=== PATIENT | female | born 1995 | race Caucasian/White ===

== ENCOUNTER 2017-06-17 16:43 | Outpatient (CLI) | payer BC, MEDICAID, SELFPAY ==
[2017-06-17] MEDS: Dextrose 5%-Lactated Ringers 1,000 ML 1000 ML IV (17:39)
[2017-06-17] MEDS: Metoclopramide 10 MG/2 ML Vial IV (18:18)
[2017-06-17 18:23] LABS: Absolute Lymphocyte Count 1.43 X10^3/ul (0.83-4.51); Absolute Neutrophil Count 4.9 X10^3/uL (2.0-7.7); Basophil# 0.02 X10^3/uL; Basophil% 0.3 % (0-1); Eosinophil# 0.03 X10^3/uL; Eosinophils% 0.4 % (0-5); Hematocrit 34.8 % (37-47); Hemoglobin 11.9 g/dl (12.0-15.0); Lymphocyte # 1.43 X10^3/ul (4.0); Lymphocyte % 21.4 % (19-41); Mean Corp Hgb Conc 34.2 g/gl (32-36); Mean Corpuscular Hgb 30.8 pg (27.0-32.0); Mean Corpuscular Volume 90.2 fL (81-99); Mean Platelet Vol. 9.1 fl (6.2-12.0); Monocyte# 0.34 X10^3/uL; Monocyte% 5.1 % (0-10); Neutrophil # 4.85 X10^3/uL (2.7-7.7); Neutrophil % 72.7 % (47-70); Platelet Count 190 K/mm3 (150-450); RBC Distribution Width SD 39.3 fl (35.1-43.9); Red Blood Count 3.86 M/mm3 (4.2-5.4); White Blood Count 6.7 K/mm3 (4.4-11.0)
[2017-06-17 18:25] LABS: POSITIVE COUNT NO; POSITIVE DIFFERENTIAL NO; POSITIVE MORPHOLOGY NO
[2017-06-17 18:40] VITALS: BP 102/60; PULSE 84; RESP 16; TEMP 35.9; O2SAT 99
[2017-06-17 18:54] LABS: ALB/GLOB Ratio 1.2 RATIO (0.9-2.4); AST(SGOT) 13 U/L (15-37); Alanine Aminotransfer ALT/SGPT 20 U/L (13-56); Albumin, Serum 3.3 g/dL (3.2-5.0); Alkaline Phosphatase 40 U/L (45-117); Anion Gap 7 (5-15); BUN 7 mg/dL (7-18); BUN/Creat Ratio 13.6 RATIO (10-20); Calcium,Total 7.9 mg/dL (8.5-10.1); Chloride 104 mmol/L (98-107); Creatinine, Serum 0.52 mg/dL (0.55-1.02); EST Glomerular Filtration Rate 155 mL/min (>60); Est Glom Filt Rate - Afr Amer 188 mL/min (>60); Globulin 2.7 g/dL (2.2-4.2); Glucose 168 mg/dL (74-106); Potassium 3.5 mmol/L (3.5-5.1); Sodium Level 136 mmol/L (136-145); T4 Free Direct 0.88 ng/dL (0.76-1.46); Thyroid Stim Hormone (TSH) 0.48 uIU/mL (0.358-3.74)
[2017-06-17 19:13] LABS: Pregnancy, Serum, hCG Quali. POSITIVE Negative (0-9 Nonpreg)
== END 2017-06-17 18:45 | disposition home or self-care (01) ==
LOC: MEDOUTP 17:08 → MS2 17:09
PROVIDERS: Visit Provider Obstetrics & Gynecology
DX: O21.1 Hyperemesis gravidarum with metabolic disturbance (principal); Z3A.00 Weeks of gestation of pregnancy not specified
CPT/HCPCS: 96361; 96374; 80053; 84439; 84443; 84703; 85025

== ENCOUNTER 2017-07-03 16:19 | Emergency (ER) | payer BC, MEDICAID, SELFPAY ==
[2017-07-03 16:21] VITALS: BP 109/85; PULSE 93; RESP 16; TEMP 36.9; O2SAT 97; BMI 23.6
--- NOTE | 2017-07-03 17:57 | EKG12_ITS ---
Test Reason : CP Blood Pressure : / mmHG Vent. Rate : 082 BPM Atrial Rate : 082 BPM P-R Int : 128 ms QRS Dur : 090 ms QT Int : 380 ms P-R-T Axes : 022 058 033 degrees QTc Int : 443 ms Normal sinus rhythm Normal ECG Confirmed by GUILLERMO GONCALVES, LESIA ([id number]), copy editor MATT JOHN ([id number]) on 07/08/2017 2:17:51 PM Referred By: ED Confirmed By:LESIA LI MD
--- NOTE | 2017-07-03 17:58 | CT_ITS ---
STUDY: CTA CHEST REASON FOR EXAM: Female, 22 years old. Chest pain. RADIATION DOSAGE (If Supplied By Facility): CTDIvol = ( 8.91 ) mGy, DLP = ( 365.35 ) mGycm TECHNIQUE: The examination was performed with the intravenous administration of 75ML ml of Isovue 370 contrast material. Post-processing of the angiographic images was performed, with multiplanar reformation and 3D reconstruction. Individualized dose optimization techniques were used for this CT. COMPARISON: None. FINDINGS: There is no pneumothorax. There are no pulmonary infiltrates or pleural effusions. There is a calcified granuloma in the right lower lobe. There are no filling defects within the pulmonary arteries to suggest pulmonary embolus. The pulmonary arteries are normal in caliber. There is no evidence of thoracic aortic aneurysm or dissection. The heart and pericardium are within normal limits. There is no thoracic lymphadenopathy. Images through the upper abdomen demonstrate no significant abnormality. There are no destructive osseous lesions. CT/CTA Chest W/WO Contrast IMPRESSION: No evidence of pulmonary embolus or other acute thoracic disease. Electronically Signed: Kahlil Mendez, at 20:04 EST Tel , Service support ,
[2017-07-03 18:00] LABS: Mucous, Urine 0 SEEN /hpf (<or=2+); Red Blood Cells-Urine 0 SEEN /hpf (0-5)
[2017-07-03] MEDS: 0.9% Normal Saline 1,000 ML 1000 ML IV (18:16)
[2017-07-03 18:26] LABS: Color, Urine Yellow (Yellow); Glucose, Dipstick Normal (Normal); Ketone-Dipstick Negative (Negative); Leukocyte Esterase-Dipstick 100 /ul (Negative); Nitrite-Dipstick Negative (Negative); Occult Blood-Urine Negative /ul (Negative); Protein-Dipstick 15 mg/dl (Negative); Urine Bilirubin Dipstick Negative (Negative); Urine Clarity Cloudy (Clear); Urine Urobilinogen Normal (Normal)
[2017-07-03 18:26] LABS: Absolute Lymphocyte Count 0.84 X10^3/ul (0.83-4.51); Absolute Neutrophil Count 8.4 X10^3/uL (2.0-7.7); Basophil# 0.01 X10^3/uL; Basophil% 0.1 % (0-1); Eosinophil# 0.03 X10^3/uL; Eosinophils% 0.3 % (0-5); Hemoglobin 14.7 g/dl (12.0-15.0); Lymphocyte # 0.84 X10^3/ul (4.0); Lymphocyte % 8.5 % (19-41); Mean Corpuscular Hgb 31.1 pg (27.0-32.0); Mean Platelet Vol. 9.3 fl (6.2-12.0); Monocyte# 0.54 X10^3/uL; Monocyte% 5.5 % (0-10); Neutrophil # 8.41 X10^3/uL (2.7-7.7); Neutrophil % 85.5 % (47-70); Platelet Count 247 K/mm3 (150-450); RBC Distribution Width CV 12.2 % (11.6-14.6); RBC Distribution Width SD 39.3 fl (35.1-43.9); Red Blood Count 4.72 M/mm3 (4.2-5.4); White Blood Count 9.8 K/mm3 (4.4-11.0)
[2017-07-03 18:27] LABS: POSITIVE COUNT NO; POSITIVE DIFFERENTIAL NO; POSITIVE MORPHOLOGY NO
[2017-07-03] MEDS: MethylPREDNISolone 125 MG/2 ML Vial 60 MG IV (18:30)
[2017-07-03] MEDS: DiphenhydrAMINE 50 MG/ML Syringe 25 MG IV (18:30)
[2017-07-03 18:36] LABS: Anion Gap 9 (5-15); BUN 7 mg/dL (7-18); BUN/Creat Ratio 14.1 RATIO (10-20); Calcium,Total 8.6 mg/dL (8.5-10.1); Chloride 104 mmol/L (98-107); EST Glomerular Filtration Rate 162 mL/min (>60); Est Glom Filt Rate - Afr Amer 196 mL/min (>60); Estimated Creatinine Clearance 149.82 ml/min; Glucose 87 mg/dL (74-106); Potassium 3.4 mmol/L (3.5-5.1); Sodium Level 136 mmol/L (136-145)
[2017-07-03 18:43] LABS: Bacteria 4+ /hpf (None Seen); Squamous Epithelial Cells - UA 5-10 SEEN /hpf (5-10); Transitional Epithelial - Ur 0-5 SEEN /hpf (0-5); White Blood Cells 0-5 SEEN /hpf (0-5)
[2017-07-03 18:44] LABS: Amorphous Sediment 4+; Calcium Oxalate Crystals Ur RARE /hpf (<or=2+)
--- NOTE | 2017-07-03 19:00 | ED.RN ---
DR. ORTIZ AWARE OF LAB CALLING WITH A BETA HCG 52,199
[2017-07-03 19:26] LABS: Prothrombin Time (Protime)PT. 13.3 SECONDS (11.7-14.9)
[2017-07-03 20:15] VITALS: BP 99/74; PULSE 83; RESP 16; O2SAT 97
[2017-07-03 20:21] VITALS: BP 104/77; BP 110/83; BP 115/87; PULSE 109; PULSE 87; PULSE 95
--- NOTE | 2017-07-03 21:04 | ED.DCSUM_ITS ---
- ER Visit Summary Date of Service: 07/03/17 Chief Complaint: Dizziness and lightheadedness History of Present Illness: The patient is a 22 F who presents with dizziness lightheadedness near syncope. This is been present for 3-4 days. It is worse with changes in position. She also complains of sharp stabbing chest pain which radiates through to the back and shortness of breath. She has had about 2 -3 episodes of dry heaving in the past week no actual vomiting. She does report eating less but drinking okay. No diarrhea. She also developed some pelvic and low back cramping earlier today. No vaginal bleeding. She is 9 weeks . She has a history of prior similar chest pain. Physical Examination: Afebrile vitals are normal Moist mucous members Heart regular rate and rhythm Lungs are clear Abdomen soft nontender nondistended Alert Test Results: EKG shows sinus rhythm at a rate of 82. CBC BMP INR unremarkable. Urinalysis is contaminated. This will be sent for urine culture. Troponin negative. Bedside pelvic ultrasound performed by the emergency physician shows a live IUP with heart rate of 188. CTA of the chest shows no acute findings. Orthostatic vital signs negative. Emergency Department Course and Treatment: She was treated with IV fluids. She is resting on reevaluation. Her workup is unremarkable here. 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 She understands to return for new or worsening symptoms. Patient discharged. Treatment Plan: [] Disposition: Discharge Impression: Syncope Pelvic cramping First trimester This note was generated with [employer] dictation software. It may contain incorrect words, spelling, and punctuation that were not noted in review of the chart prior to signing ED Disposition - Plan for ED Patient: Chief Complaint: Dizziness Referrals: Care Physician,No Primary [Primary Care Provider] -
--- NOTE | 2017-07-03 21:04 | ED.DEP ---
ED Disposition - Plan for ED Patient: Chief Complaint: Dizziness Instructions: ED Near Syncope Unkn Referrals: Care Physician,No Primary [Primary Care Provider] - Emily Mike MD [STAFF PHYSICIAN] -
[2017-07-03 21:08] VITALS: BP 104/75; PULSE 84; RESP 16; O2SAT 97
== END 2017-07-03 21:16 | disposition home or self-care (01) ==
PROVIDERS: Emergency Provider Emergency Medicine
DX: O99.89 Other specified diseases and conditions complicating pregnancy, childbirth and the puerperium (principal); R55 Syncope and collapse; O26.891 Other specified pregnancy related conditions, first trimester; R10.2 Pelvic and perineal pain; Z3A.09 9 weeks gestation of pregnancy
CPT/HCPCS: 71275; 80048; 81001; 84484; 84702; 85025; 85610; 93005; 96361; 96374; 96375; 99285; J7030; Q9967; A4216

== ENCOUNTER → 2017-07-19 16:45 | Outpatient (CLI) | payer BC, SELFPAY ==
[2017-07-19 19:05] LABS: Chlamydia Trachomatis by PCR Negative (Negative); Neisserai gonorrhoeae by PCR Negative (Negative); Probe Check PASS; Sample Adequacy Control PASS; Specimen Processing Control PASS
[2017-07-30 14:31] LABS: HPV APTIMA, High Risk Negative (Negative); HPV Reflexed? YES, CHARGE PATIENT
== END ==
PROVIDERS: Visit Provider Obstetrics & Gynecology
DX: Z12.4 Encounter for screening for malignant neoplasm of cervix (principal); O09.91 Supervision of high risk pregnancy, unspecified, first trimester; Z3A.00 Weeks of gestation of pregnancy not specified
CPT/HCPCS: 87086; 87491; 87591; 87624; 88175; G0145

== ENCOUNTER → 2017-08-28 09:29 | Outpatient (CLI) | payer OTHER, MEDICAID, SELFPAY ==
[2017-08-28 09:55] LABS: Absolute Lymphocyte Count 1.49 X10^3/ul (0.83-4.51); Absolute Neutrophil Count 5.1 X10^3/uL (2.0-7.7); Basophil# 0.02 X10^3/uL; Basophil% 0.3 % (0-1); Eosinophil# 0.05 X10^3/uL; Eosinophils% 0.7 % (0-5); Hematocrit 39.1 % (37-47); Hemoglobin 13.7 g/dl (12.0-15.0); Lymphocyte # 1.49 X10^3/ul (4.0); Lymphocyte % 20.8 % (19-41); Mean Corpuscular Hgb 31.6 pg (27.0-32.0); Mean Corpuscular Volume 90.1 fL (81-99); Mean Platelet Vol. 8.9 fl (6.2-12.0); Monocyte# 0.51 X10^3/uL; Monocyte% 7.1 % (0-10); Neutrophil # 5.06 X10^3/uL (2.7-7.7); Neutrophil % 70.8 % (47-70); Platelet Count 273 K/mm3 (150-450); RBC Distribution Width CV 12.3 % (11.6-14.6); RBC Distribution Width SD 39.8 fl (35.1-43.9); Red Blood Count 4.34 M/mm3 (4.2-5.4); White Blood Count 7.2 K/mm3 (4.4-11.0)
[2017-08-28 09:58] LABS: POSITIVE COUNT NO; POSITIVE DIFFERENTIAL NO; POSITIVE MORPHOLOGY NO
[2017-08-28 10:31] LABS: ALB/GLOB Ratio 0.9 RATIO (0.9-2.4); AST(SGOT) 16 U/L (15-37); Alanine Aminotransfer ALT/SGPT 16 U/L (13-56); Albumin, Serum 3.3 g/dL (3.2-5.0); Alkaline Phosphatase 70 U/L (45-117); Anion Gap 10 (5-15); BUN 5 mg/dL (7-18); BUN/Creat Ratio 9.4 RATIO (10-20); Calcium,Total 8.5 mg/dL (8.5-10.1); Chloride 107 mmol/L (98-107); Creatinine, Serum 0.53 mg/dL (0.55-1.02); EST Glomerular Filtration Rate 149 mL/min (>60); Est Glom Filt Rate - Afr Amer 180 mL/min (>60); Globulin 3.7 g/dL (2.2-4.2); Glucose 79 mg/dL (74-106); Potassium 3.5 mmol/L (3.5-5.1); Sodium Level 141 mmol/L (136-145); T4 Free Direct 0.87 ng/dL (0.76-1.46); Thyroid Stim Hormone (TSH) 0.61 uIU/mL (0.358-3.74)
[2017-08-28 11:09] LABS: HIV - WCH Non-Reactive (Nonreactive); Rubella IgG 300.2 IU/mL
[2017-08-29 12:24] LABS: HEPATITIS B SURFACE AG Negative (Negative)
[2017-08-30 01:05] LABS: Rapid Plasmin Reagin (RPR) NONREACTIVE (NONREACTIVE)
== END ==
PROVIDERS: Visit Provider Obstetrics & Gynecology
DX: O21.0 Mild hyperemesis gravidarum (principal); O09.91 Supervision of high risk pregnancy, unspecified, first trimester; Z3A.00 Weeks of gestation of pregnancy not specified
CPT/HCPCS: 36415; 80053; 84439; 84443; 85025; 86592; 86703; 86762; 86850; 86900; 87340

== ENCOUNTER → 2017-09-27 17:58 | Outpatient (CLI) | payer OTHER, MEDICAID, SELFPAY ==
[2017-09-27 18:25] LABS: Protein, Urine (Random) 6.7 mg/dL (<11.9); Protein:Creat Ratio 199 mg/g CRE (0-200)
== END ==
PROVIDERS: Visit Provider Obstetrics & Gynecology
DX: O09.291 Supervision of pregnancy with other poor reproductive or obstetric history, first trimester (principal); Z3A.00 Weeks of gestation of pregnancy not specified
CPT/HCPCS: 82570; 84156

== ENCOUNTER 2017-10-25 04:40 | Outpatient (CLI) | payer OTHER, MEDICAID, SELFPAY ==
[2017-10-25 05:27] VITALS: BMI 27.8
[2017-10-25 05:42] LABS: Bacteria 0 SEEN /hpf (None Seen); Mucous, Urine 0 SEEN /hpf (<or=2+); Red Blood Cells-Urine 0 SEEN /hpf (0-5); White Blood Cells 0 SEEN /hpf (0-5)
[2017-10-25 05:45] LABS: Color, Urine Straw (Yellow); Glucose, Dipstick Normal (Normal); Ketone-Dipstick Negative (Negative); Leukocyte Esterase-Dipstick Negative /ul (Negative); Nitrite-Dipstick Negative (Negative); Occult Blood-Urine Negative /ul (Negative); Protein-Dipstick Negative (Negative); Specific Gravity, Urine 1.005 (1.002-1.030); Urine Bilirubin Dipstick Negative (Negative); Urine Clarity Clear (Clear); Urine Urobilinogen Normal (Normal)
[2017-10-25] MEDS: Lactated Ringers 1,000 ML 999 ML IV (05:58)
[2017-10-25] MEDS: Acetaminophen 500 MG Tablet 1000 MG PO (06:08)
[2017-10-25 06:17] LABS: Squamous Epithelial Cells - UA 0-5 SEEN /hpf (5-10)
[2017-10-25 06:40] LABS: Absolute Lymphocyte Count 1.64 X10^3/ul (0.83-4.51); Absolute Neutrophil Count 5.1 X10^3/uL (2.0-7.7); Basophil# 0.01 X10^3/uL; Basophil% 0.1 % (0-1); Eosinophil# 0.04 X10^3/uL; Eosinophils% 0.5 % (0-5); Hematocrit 34.3 % (37-47); Hemoglobin 11.8 g/dl (12.0-15.0); Lymphocyte # 1.64 X10^3/ul (4.0); Lymphocyte % 21.6 % (19-41); Mean Corp Hgb Conc 34.4 g/gl (32-36); Mean Corpuscular Hgb 31.6 pg (27.0-32.0); Mean Platelet Vol. 9.1 fl (6.2-12.0); Monocyte# 0.78 X10^3/uL; Monocyte% 10.3 % (0-10); Neutrophil # 5.09 X10^3/uL (2.7-7.7); Neutrophil % 67.1 % (47-70); POSITIVE COUNT NO; POSITIVE DIFFERENTIAL NO; POSITIVE MORPHOLOGY NO; Platelet Count 247 K/mm3 (150-450); RBC Distribution Width CV 12.7 % (11.6-14.6); RBC Distribution Width SD 42.8 fl (35.1-43.9); Red Blood Count 3.73 M/mm3 (4.2-5.4); White Blood Count 7.6 K/mm3 (4.4-11.0)
[2017-10-25 06:51] LABS: Anion Gap 5 (5-15); BUN 7 mg/dL (7-18); BUN/Creat Ratio 15.3 RATIO (10-20); Calcium,Total 8.6 mg/dL (8.5-10.1); Chloride 108 mmol/L (98-107); Creatinine, Serum 0.46 mg/dL (0.55-1.02); EST Glomerular Filtration Rate 178 mL/min (>60); Est Glom Filt Rate - Afr Amer 215 mL/min (>60); Estimated Creatinine Clearance 162.84 ml/min; Glucose 84 mg/dL (74-106); Potassium 3.6 mmol/L (3.5-5.1); Sodium Level 139 mmol/L (136-145)
--- NOTE | 2017-10-25 08:42 | OB.TRI.NOTE ---
- Problem List (1) Threatened labor Status: Acute History of Present Illness Date of Service: 10/25/17 Was patient seen by the physician?: Yes Reason For Visit: R/O LABOR Date of Service: 10/25/17 Final JESSEE: 02/03/18 Gestational age: 25 Weeks and 4 Days History of Present Illness: 22 yo @ 25 weeks presents with headache in the back of her head, elevated bp at home, pelvic pain and pressure, back pain, and irregular ctx. she dneiesa any vb or lof admits good fm. Allergies amoxicillin Allergy (Verified 10/25/17 05:32) Hives Iodinated Contrast- Oral and IV Dye [Iodinated Contrast Media - IV Dye] Allergy (Verified 10/25/17 05:32) Hives pamabrom [From Midol] Allergy (Verified 10/25/17 05:32) Other blown pupil and hives - Pertinent Past Medical History Medical History: Past Medical History (Last Reviewed 10/25/17 @ 08:43 by Emily Mike MD) Preeclampsia Surgical History: Past Surgical History (Last Reviewed 10/25/17 @ 08:43 by Emily Mike MD) delivery delivered Physical Exam General: Alert, Cooperative, No apparent distress HEENT: Atraumatic, Normocephalic. Negative for: Thyromegaly, Lymphadenopathy Cardiovascular: Regular rate Lungs: Normal air movement Abdomen: Soft, Non Tender, Gravid Neurological: Deep Tendon Reflexes 2+/4 and Symmetrical, Neuro grossly intact. Negative for: Clonus GRINDER SET UP OPERATOR: Normal external genitalia. Negative for: Vulvar lesions Estimated gestational size: Appropriate for gestational size Presentation: Cephalic NST - FHR Rate Baby A Baseline: 150 Variability:: Moderate Accelerations:: 10 x 10 Decelerations:: None NST Reactive:: Appropriate for gestational age Uterine Activity:: irritability Impression/Plan 22 yo @ 25 weeks with threatened PTL, HESS s/p IVFS, normal labs, cervix closed, HESS improved with tylenol. dc home
--- NOTE | 2017-10-25 08:45 | OB.TRI.HP_ITS ---
- Problem List (1) Threatened labor Status: Acute History of Present Illness Date of Service: 10/25/17 Was patient seen by the physician?: Yes Reason For Visit: R/O LABOR Date of Service: 10/25/17 Final JESSEE: 02/03/18 Gestational age: 25 Weeks and 4 Days History of Present Illness: 22 yo @ 25 weeks presents with headache in the back of her head, elevated bp at home, pelvic pain and pressure, back pain, and irregular ctx. she dneiesa any vb or lof admits good fm. Allergies amoxicillin Allergy (Verified 10/25/17 05:32) Hives Iodinated Contrast- Oral and IV Dye [Iodinated Contrast Media - IV Dye] Allergy (Verified 10/25/17 05:32) Hives pamabrom [From Midol] Allergy (Verified 10/25/17 05:32) Other blown pupil and hives - Pertinent Past Medical History Medical History: Past Medical History (Last Reviewed 10/25/17 @ 08:43 by Emily Mike MD) Preeclampsia Surgical History: Past Surgical History (Last Reviewed 10/25/17 @ 08:43 by Emily Mike MD ) delivery delivered Physical Exam General: Alert, Cooperative, No apparent distress HEENT: Atraumatic, Normocephalic. Negative for: Thyromegaly, Lymphadenopathy Cardiovascular: Regular rate Lungs: Normal air movement Abdomen: Soft, Non Tender, Gravid Neurological: Deep Tendon Reflexes 2+/4 and Symmetrical, Neuro grossly intact. Negative for: Clonus SECURITY SYSTEM ANALYST: Normal external genitalia. Negative for: Vulvar lesions Estimated gestational size: Appropriate for gestational size Presentation: Cephalic NST - FHR Rate Baby A Baseline: 150 Variability:: Moderate Accelerations:: 10 x 10 Decelerations:: None NST Reactive:: Appropriate for gestational age Uterine Activity:: irritability Impression/Plan 22 yo @ 25 weeks with threatened PTL, HESS s/p IVFS, normal labs, cervix closed, HESS improved with tylenol. dc home
== END 2017-10-25 08:14 | disposition home or self-care (01) ==
LOC: WPOUT 05:17 → WP 05:17
PROVIDERS: Visit Provider Obstetrics & Gynecology
DX: O60.02 Preterm labor without delivery, second trimester (principal); O99.89 Other specified diseases and conditions complicating pregnancy, childbirth and the puerperium; R51 Headache; Z3A.25 25 weeks gestation of pregnancy
CPT/HCPCS: 96360; 36415; 59025; 59050; 80048; 81001; 85025; 99218; J7120; G0378

== ENCOUNTER → 2017-11-01 12:53 | Outpatient (CLI) | payer OTHER, MEDICAID, SELFPAY ==
--- NOTE | 2017-11-01 12:55 | US_ITS ---
STUDY: SECOND AND THIRD TRIMESTER OBSTETRICAL ULTRASOUND REASON FOR EXAM: Female, 22 years old. Routine survey. LMP: 2017. TECHNIQUE: Transabdominal PRIOR ULTRASOUND: None. FINDINGS: There is a single intrauterine fetus. The fetus is in a breech presentation. There is demonstrated cardiac activity with a heart rate of 152 bpm. There is a normal amniotic fluid volume. The largest amniotic fluid pocket measures 15.0 cm x 4.3 cm. The amniotic fluid index (JOSHUA) is normal. The placenta is posterior in location and is not low lying. There are Grade 0 placental changes. The cervix measures 5.0 cm in length. The adnexal regions are not visualized. BIOMETRY: BPD: 6.49 cm: 26 weeks, 2 days HC: 25.28 cm: 27 weeks, 4 days AC: 21.2 cm: 25 weeks, 6 days FL: 5.01 cm: 27 weeks, 0 days CI: 72% FL/BPD: 77% FL/HC: FL/AC: 24% HC/AC: 1.19 age by current US: 26 weeks, 5 days. JESSEE by current US: February 02, 2018. Estimated weight: 925 grams, +/- 135 grams, 41 %. Age by LMP: 26 weeks, 2 days. JSESEE by LMP: February 05, 2018. ANATOMY: Gender: Male Cranium: Normal lateral ventricles. Normal choroid plexus. Normal cerebellum. Normal cisterna magna. Normal face, nose and lips. Chest: Normal 4-chamber heart. Abdomen/Pelvis: Normal diaphragm. Normal stomach. Normal abdominal wall. Normal cord insertion. Normal 3 vessel cord. Normal kidneys. Normal bladder. Spine: Normal cervical spine. Normal thoracic spine. Normal lumbar spine. Normal sacrum. Extremities: Normal bilateral upper extremities. Normal bilateral lower extremities. US/OB Anatomy Scan IMPRESSION: Single live intrauterine gestation with a mean gestational age of 26 weeks and 5 days. Electronically Signed: Bossman Cardenas MD at 14:36 EDT Tel [phone], Service support ,
== END ==
PROVIDERS: Visit Provider Nurse Practitioner Women's Health
DX: O09.91 Supervision of high risk pregnancy, unspecified, first trimester (principal); Z3A.00 Weeks of gestation of pregnancy not specified; Z82.79 Family history of other congenital malformations, deformations and chromosomal abnormalities
CPT/HCPCS: 76805

== ENCOUNTER 2017-12-13 20:33 | Outpatient (CLI) | payer OTHER, MEDICAID, SELFPAY ==
[2017-12-13] MEDS: Acetaminophen 500 MG Tablet 1000 MG PO (21:32)
[2017-12-13 21:34] VITALS: BMI 29.7
[2017-12-13 21:53] LABS: Bacteria 0 SEEN /hpf (None Seen); Mucous, Urine 0 SEEN /hpf (<or=2+); Red Blood Cells-Urine 0 SEEN /hpf (0-5); White Blood Cells 0 SEEN /hpf (0-5)
[2017-12-13 21:55] LABS: Hematocrit 35.6 % (37-47); Hemoglobin 12.4 g/dl (12.0-15.0); Mean Corp Hgb Conc 34.8 g/gl (32-36); Mean Corpuscular Hgb 32.1 pg (27.0-32.0); Mean Corpuscular Volume 92.2 fL (81-99); Mean Platelet Vol. 9.3 fl (6.2-12.0); Platelet Count 212 K/mm3 (150-450); RBC Distribution Width CV 12.9 % (11.6-14.6); RBC Distribution Width SD 43.1 fl (35.1-43.9); Red Blood Count 3.86 M/mm3 (4.2-5.4)
[2017-12-13 22:03] LABS: Scan Indicated on CBC? Y/N NO
[2017-12-13 22:06] LABS: Creatinine, Urine (random) < 13.00 mg/dL (NO RANGE EST.); Protein, Urine (Random) < 6.0 mg/dL (<11.9)
[2017-12-13 22:12] LABS: ROM Internal Control Test YES-OK TO RESULT pt. (Internal QC)
[2017-12-13 22:13] LABS: ROM Patient Test Negative (Negative)
[2017-12-13 22:16] LABS: AST(SGOT) 20 U/L (15-37); Alanine Aminotransfer ALT/SGPT 17 U/L (13-56); Creatinine, Serum 0.43 mg/dL (0.55-1.02); EST Glomerular Filtration Rate 189 mL/min (>60); Est Glom Filt Rate - Afr Amer 229 mL/min (>60); Estimated Creatinine Clearance 174.21 ml/min
[2017-12-13 22:17] LABS: Color, Urine Straw (Yellow); Glucose, Dipstick Normal (Normal); Ketone-Dipstick Negative (Negative); Leukocyte Esterase-Dipstick Negative /ul (Negative); Nitrite-Dipstick Negative (Negative); Occult Blood-Urine Negative /ul (Negative); Protein-Dipstick Negative (Negative); Urine Bilirubin Dipstick Negative (Negative); Urine Clarity Clear (Clear); Urine Urobilinogen Normal (Normal)
[2017-12-13 22:21] LABS: International Normalized Ratio 0.9; Partial Thromboplast Time 25.9 Seconds (24.1-36.2)
[2017-12-13 22:34] LABS: Fetal Fibronectin Negative
[2017-12-13 22:35] LABS: Squamous Epithelial Cells - UA 0-5 SEEN /hpf (5-10)
[2017-12-13] MEDS: Terbutaline 1 MG/ML Vial 0.25 MG SC (22:46)
[2017-12-13] MEDS: oxyCODONE 5 MG Tablet PO (22:46)
--- NOTE | 2017-12-15 03:37 | OB.TRI.NOTE ---
- Problem List (1) Threatened labor Status: Acute Qualifiers: History of Present Illness Date of Service: 12/13/17 Was patient seen by the physician?: Yes Reason For Visit: R/O LABOR Date of Service: 12/13/17 History of Present Illness: co ctx and mild headache Allergies amoxicillin Allergy (Verified 12/13/17 22:05) Hives Iodinated Contrast- Oral and IV Dye [Iodinated Contrast Media - IV Dye] Allergy (Verified 12/13/17 22:05) Hives pamabrom [From Midol] Allergy (Verified 12/13/17 22:05) Other blown pupil and hives - Pertinent Past Medical History Medical History: Past Medical History (Last Reviewed 11/27/17 @ 14:06 by Cheli Herrera) Preeclampsia Surgical History: Past Surgical History (Last Reviewed 11/27/17 @ 14:06 by Cheli Herrera) delivery delivered NST - FHR Rate Baby A Baseline: 140 Variability:: Moderate Accelerations:: 15 x 15 NST Reactive:: Yes FHR Category:: Category I Uterine Activity:: irregular Impression/Plan no active labor no cervical change reactive nst labor precautions dc home
== END 2017-12-14 00:10 | disposition home or self-care (01) ==
LOC: WPOUT 20:57 → WP 20:57
PROVIDERS: Visit Provider Obstetrics & Gynecology
DX: O47.9 False labor, unspecified (principal); Z3A.00 Weeks of gestation of pregnancy not specified
CPT/HCPCS: 36415; 59025; 59050; 81001; 82565; 82570; 82731; 84112; 84156; 84450; 84460; 84550; 85027; 85610; 85730; 96372; 99218; G0378

== ENCOUNTER → 2017-12-17 17:37 | Outpatient (CLI) | payer OTHER, MEDICAID, SELFPAY | PROVIDERS: Visit Provider Nurse Practitioner Women's Health | DX: O99.89 Other specified diseases and conditions complicating pregnancy, childbirth and the puerperium (principal); M54.9 Dorsalgia, unspecified; Z3A.00 Weeks of gestation of pregnancy not specified | CPT/HCPCS: 87086; 87088 ==

== ENCOUNTER 2017-12-25 14:15 | Outpatient (CLI) | payer OTHER, MEDICAID, SELFPAY ==
[2017-12-25 14:27] VITALS: BMI 29.9
[2017-12-25] MEDS: Acetaminophen 500 MG Tablet 1000 MG PO (15:13)
[2017-12-25] MEDS: oxyCODONE 5 MG Tablet PO (15:16)
[2017-12-25] MEDS: Betamethasone/Betamethasone 30 MG/5 ML Vial 12 MG IM (15:17)
[2017-12-25 15:49] LABS: Hematocrit 37.4 % (37-47); Hemoglobin 13.1 g/dl (12.0-15.0); Mean Corpuscular Hgb 32.3 pg (27.0-32.0); Mean Corpuscular Volume 92.3 fL (81-99); Mean Platelet Vol. 8.7 fl (6.2-12.0); Platelet Count 267 K/mm3 (150-450); RBC Distribution Width CV 12.5 % (11.6-14.6); RBC Distribution Width SD 41.3 fl (35.1-43.9); Red Blood Count 4.05 M/mm3 (4.2-5.4); White Blood Count 9.2 K/mm3 (4.4-11.0)
[2017-12-25 15:58] LABS: Scan Indicated on CBC? Y/N NO
[2017-12-25] MEDS: Lactated Ringers 1,000 ML 100 ML IV (16:00)
[2017-12-25 16:01] LABS: AST(SGOT) 18 U/L (15-37); Alanine Aminotransfer ALT/SGPT 21 U/L (13-56); Creatinine, Serum 0.56 mg/dL (0.55-1.02); EST Glomerular Filtration Rate 140 mL/min (>60); Est Glom Filt Rate - Afr Amer 169 mL/min (>60); Estimated Creatinine Clearance 133.77 ml/min; Uric Acid 2.5 mg/dL (2.6-6.0)
[2017-12-25 16:29] LABS: International Normalized Ratio 0.9; Partial Thromboplast Time 26.1 Seconds (24.1-36.2); Prothrombin Time (Protime)PT. 12.4 SECONDS (11.7-14.9)
[2017-12-25 16:34] LABS: Protein, Urine (Random) < 6.0 mg/dL (<11.9)
[2017-12-25 16:48] LABS: Amphetamine Urine VISTA NEGATIVE (<1000 ng/mL); Barbiturate Urine VISTA NEGATIVE (< 200 ng/mL); Benzodiazepine Urine VISTA NEGATIVE (< 200 ng/mL); Cocaine Urine VISTA NEGATIVE (< 300 ng/mL); Ecstacy Urine VISTA NEGATIVE (< 500 ng/mL); Methadone Urine VISTA NEGATIVE (< 300 ng/mL); PCP Urine VISTA NEGATIVE (< 25 ng/mL); THC Urine VISTA NEGATIVE (< 50 ng/mL); Vista UDS pH Range 7
[2017-12-25] MEDS: proMETHazine 25 MG Tablet PO (17:30)
--- NOTE | 2017-12-25 19:25 | PCM.HP.OB ---
- Problem List (1) Gestational hypertension Status: Acute History Date of Admission: 12/25/17 Final JESSEE: 02/03/18 Gestational age: 34 Weeks and 2 Days History of this : This is a 22 year-old, , at 34w2d weeks gestational age presents with elevated blood pressure and complex migraines symptoms. headache is improving with fluids and pain meds but she felt headache and visual changes with nausea. she has a history of migraines. she denies any vb or lof but admits good fm. she has also had some chest pressure and discomfort. she has not been sleeping well and only getting 2-3 hours at night due to discomfort and feels great fatigue. Medical History: Medical History (Last Reviewed 12/18/17 @ 09:54 by Nurys Pulliam) Preeclampsia O14.90 Surgical History: Surgical History (Last Reviewed 12/18/17 @ 09:54 by Nurys Pulliam) delivery delivered O82 Allergies amoxicillin Allergy (Verified 12/17/17 14:46) Hives Iodinated Contrast- Oral and IV Dye [Iodinated Contrast Media - IV Dye] Allergy (Verified 12/17/17 14:46) Hives pamabrom [From Midol] Allergy (Verified 12/17/17 14:46) Other blown pupil and hives Home Medications: Home Medications acetaminophen 325 mg tablet 325 mg PO ONCE PRN 06/17/17 vitamin,calcium,vavmlnax-kzeh-sokey acid tablet 1 tab PO QDAY 06/17/17 cyclobenzaprine 10 mg tablet 10 mg PO TID PRN #30 tab 12/17/17 Smoking Status: Former smoker Alcohol: None Number of Fetus(es): 1 Heart Tracin moderate viarbility reactive no decels cat I tracing History Past Pregnancies: Past Pregnancies Delivery Date Name GA/Weeks Outcome Route Weight Gender Labor Length Anesthesia Delivery Location Provider FOB 35 preeclampsia cs Labs: Mom's Problem List Problem Status Onset Code Gestational hypertension Acute O13.9 Mom's Labs & Results 12/25/17 12/25/17 12/25/17 15:05 15:05 15:05 WBC 9.2 RBC 4.05 L Hgb 13.1 Hct 37.4 MCV 92.3 MCH 32.3 H MCHC 35.0 RDW 12.5 RDW Differential 41.3 Plt Count 267 MPV 8.7 PT 12.4 INR 0.9 APTT 26.1 Creatinine Estim Creat Clear Calc Est GFR (MDRD) Af Amer Est GFR (MDRD) Non-Af Uric Acid AST ALT U Random Total Protein < 6.0 Urine Creatinine 27.70 Protein/Creatinin Ratio TNP Urine Opiates Screen Urine Methadone Screen Ur Barbiturates Screen Ur Phencyclidine Scrn Ur Amphetamines Screen U Methamphetamin-MDMA U Benzodiazepines Scrn Urine Cocaine Screen U Cannabinoids Screen Ur Drug Screen Comment 12/25/17 12/25/17 15:05 15:55 WBC RBC Hgb Hct MCV MCH MCHC RDW RDW Differential Plt Count MPV PT INR APTT Creatinine 0.56 Estim Creat Clear Calc 133.77 Est GFR (MDRD) Af Amer 169 Est GFR (MDRD) Non-Af 140 Uric Acid 2.5 L AST 18 ALT 21 U Random Total Protein Urine Creatinine Protein/Creatinin Ratio Urine Opiates Screen NEGATIVE Urine Methadone Screen NEGATIVE Ur Barbiturates Screen NEGATIVE Ur Phencyclidine Scrn NEGATIVE Ur Amphetamines Screen NEGATIVE U Methamphetamin-MDMA NEGATIVE U Benzodiazepines Scrn NEGATIVE Urine Cocaine Screen NEGATIVE U Cannabinoids Screen NEGATIVE Ur Drug Screen Comment Social History Smoking Status Former smoker Expected Delivery Method: Spontaneous Vaginal Review of Systems Constitutional: Denies: Fever, Malaise Eyes: Reports: Blurred vision, Vision Change HEENT: Reports: Head Aches, Visual Changes Cardiovascular: Reports: Chest Pain. Denies: Palpitations Respiratory: Denies: Cough, Shortness of Breath, Wheezing Gastrointestinal: Reports: Nausea, Vomiting. Denies: Abdominal Pain, Diarrhea Genitourinary: Denies: Dysuria, Hematuria Musculoskeletal: Denies: Joint Pain, Muscle pain Skin: Denies: Lesions, Rash Neurological: Denies: Blurred vision, Focal weakness, Headaches Psychiatric: Denies: Anxiety, Depression Endocrine: Denies: Heat/ Cold Intolerance Hematologic/ Lymphatic: Denies: Easy Bruising, Easy Bleeding Assessment/Plan All Active Problems (Last Reviewed 12/18/17 @ 09:54 by Nurys Pulliam) Gestational hypertension (Acute) Segmental and somatic dysfunction of sacral region (Acute) Segmental and somatic dysfunction of pelvic region (Acute) Segmental and somatic dysfunction of lumbar region (Acute) Right lumbar radiculitis (Acute) Threatened labor (Acute) Rh negative state in antepartum period (Acute) Family history of congenital heart defect (Acute) Family history of cleft lip and palate (Acute) Previous delivery affecting , antepartum (Acute) History of pre-eclampsia in prior , currently in first trimester (Acute) Hyperemesis affecting , antepartum (Acute) Supervision of high-risk (Acute) This is a 22 year-old, G [], P [], at weeks gestational age.
[2017-12-26] MEDS: Lactated Ringers 1,000 ML 100 ML IV (01:06)
== END 2017-12-26 12:40 | disposition home or self-care (01) ==
LOC: WPOUT 14:24 → WP 14:26
PROVIDERS: Visit Provider Obstetrics & Gynecology
DX: O13.3 Gestational [pregnancy-induced] hypertension without significant proteinuria, third trimester (principal); O99.353 Diseases of the nervous system complicating pregnancy, third trimester; G43.909 Migraine, unspecified, not intractable, without status migrainosus; O36.0130 Maternal care for anti-D [Rh] antibodies, third trimester, not applicable or unspecified; O99.89 Other specified diseases and conditions complicating pregnancy, childbirth and the puerperium; R07.89 Other chest pain; Z87.59 Personal history of other complications of pregnancy, childbirth and the puerperium; Z87.891 Personal history of nicotine dependence; O26.813 Pregnancy related exhaustion and fatigue, third trimester; Z3A.34 34 weeks gestation of pregnancy
CPT/HCPCS: 96360; 96361 ×17; 59025; 59050; 80307; 82565; 82570; 84156; 84450; 84460; 84550; 85027; 85610; 85730; 93005; 96372; 99218; J7120; A4216; G0378; J0702

== ENCOUNTER 2017-12-26 20:10 | Outpatient (CLI) | payer OTHER, MEDICAID, SELFPAY ==
[2017-12-26] MEDS: Betamethasone/Betamethasone 30 MG/5 ML Vial 12 MG IM (20:45)
--- NOTE | 2017-12-31 05:46 | OB.TRI.NOTE ---
- Problem List (1) Prematurity of fetus Status: Acute History of Present Illness Reason For Visit: INJECTION/CELESTONE Allergies amoxicillin Allergy (Verified 12/17/17 14:46) Hives Iodinated Contrast- Oral and IV Dye [Iodinated Contrast Media - IV Dye] Allergy (Verified 12/17/17 14:46) Hives pamabrom [From Midol] Allergy (Verified 12/17/17 14:46) Other blown pupil and hives - Pertinent Past Medical History Medical History: Past Medical History (Last Reviewed 12/18/17 @ 09:54 by Nurys Pulliam) Preeclampsia Surgical History: Past Surgical History (Last Reviewed 12/18/17 @ 09:54 by Nurys Pulliam) delivery delivered Impression/Plan celestone injection number 2
== END 2017-12-26 21:00 | disposition home or self-care (01) ==
LOC: WPOUT 20:22 → WP 20:23
PROVIDERS: Visit Provider Obstetrics & Gynecology
DX: O60.00 Preterm labor without delivery, unspecified trimester (principal); Z3A.00 Weeks of gestation of pregnancy not specified
CPT/HCPCS: 96372; 99218; G0378; J0702

== ENCOUNTER → 2018-01-10 14:55 | Outpatient (CLI) | payer OTHER, MEDICAID, SELFPAY ==
[2018-01-10 17:13] LABS: Group B Strep DNA By PCR POSITIVE (Negative); Probe Check PASS
== END ==
PROVIDERS: Visit Provider Obstetrics & Gynecology
DX: O34.219 Maternal care for unspecified type scar from previous cesarean delivery (principal); Z3A.00 Weeks of gestation of pregnancy not specified
CPT/HCPCS: 87653

== ENCOUNTER 2018-01-10 21:03 | Outpatient (CLI) | payer OTHER, MEDICAID, SELFPAY ==
[2018-01-10] MEDS: 0.9% Saline Lock 10 ML Syringe IV (21:35)
[2018-01-10] MEDS: oxyCODONE 5 MG Tablet PO (21:52)
[2018-01-10 22:04] VITALS: BMI 30.5
[2018-01-10 22:18] LABS: Hematocrit 36.8 % (37-47); Hemoglobin 12.6 g/dl (12.0-15.0); Mean Corp Hgb Conc 34.2 g/gl (32-36); Mean Corpuscular Hgb 31.6 pg (27.0-32.0); Mean Corpuscular Volume 92.2 fL (81-99); Mean Platelet Vol. 8.8 fl (6.2-12.0); Platelet Count 219 K/mm3 (150-450); RBC Distribution Width CV 12.8 % (11.6-14.6); RBC Distribution Width SD 42.7 fl (35.1-43.9); Red Blood Count 3.99 M/mm3 (4.2-5.4); White Blood Count 9.6 K/mm3 (4.4-11.0)
[2018-01-10 22:20] LABS: Scan Indicated on CBC? Y/N NO
[2018-01-10 22:21] LABS: International Normalized Ratio 0.9; Partial Thromboplast Time 25.6 Seconds (24.1-36.2); Prothrombin Time (Protime)PT. 11.9 SECONDS (11.7-14.9)
[2018-01-10 22:31] LABS: AST(SGOT) 15 U/L (15-37); Alanine Aminotransfer ALT/SGPT 19 U/L (13-56); Creatinine, Serum 0.54 mg/dL (0.55-1.02); EST Glomerular Filtration Rate 146 mL/min (>60); Est Glom Filt Rate - Afr Amer 176 mL/min (>60); Estimated Creatinine Clearance 138.72 ml/min
[2018-01-10 22:40] LABS: Creatinine, Urine (random) < 13.00 mg/dL (NO RANGE EST.); Protein, Urine (Random) < 6.0 mg/dL (<11.9)
--- NOTE | 2018-01-10 22:56 | EKG12_ITS ---
Test Reason : CP Blood Pressure : / mmHG Vent. Rate : 076 BPM Atrial Rate : 076 BPM P-R Int : 136 ms QRS Dur : 092 ms QT Int : 408 ms P-R-T Axes : 018 036 019 degrees QTc Int : 459 ms Normal sinus rhythm Normal ECG When compared with ECG of 25-DEC-2017 14:49, No significant change was found Confirmed by GUILLERMO GONCALVES, LESIA ([id number]), tape editor MATT JOHN ([id number]) on 01/15/2018 3:31:33 PM Referred By: Emily Mike Confirmed By:LESIA LI MD
--- NOTE | 2018-01-16 22:18 | OB.TRI.NOTE ---
- Problem List (1) Elevated blood pressure affecting in third trimester, antepartum Status: Acute (2) Headache Status: Acute (3) Threatened labor Status: Acute Qualifiers: (4) History of pre-eclampsia in prior , currently in first trimester Status: Acute Comment: baseline labs, take 81 mg asa daily starting at 12 weeks History of Present Illness Was patient seen by the physician?: Yes Reason For Visit: SEVERE HEADACHE Date of Service: 01/12/18 History of Present Illness: 22 yo @ 36 weeks presents with headache and dizziness, borderline elevated bps. preeclampsia labs are WNL and urine is negative for protein. she is complaining about her discomfort with the and is anxious about her headache and states her blood pressures are labile at home. repeat bps are normal to mildly elevated. she deneliseo barker vb lof admits good fm and has some ctx. Allergies amoxicillin Allergy (Verified 01/15/18 13:53) Hives Iodinated Contrast- Oral and IV Dye [Iodinated Contrast Media - IV Dye] Allergy (Verified 01/15/18 13:53) Hives pamabrom [From Midol] Allergy (Verified 01/15/18 13:53) Other blown pupil and hives - Pertinent Past Medical History Medical History: Past Medical History (Last Reviewed 01/15/18 @ 13:52 by Cheli Herrera) Preeclampsia Surgical History: Past Surgical History (Last Reviewed 01/15/18 @ 13:52 by Cheli Herrera) delivery delivered Review of Systems Eyes: Reports: Vision Change HEENT: Reports: Head Aches Gastrointestinal: Denies: Abdominal Pain Gynecological: Denies: Vaginal bleeding, Vaginal discharge Physical Exam General: Alert, Cooperative, No apparent distress HEENT: Normocephalic Cardiovascular: Regular rate Lungs: Clear to auscultation Abdomen: Soft, Non Tender Extremities:: No edema Neurological: Cranial nerves II-XII grossly intact, Neuro grossly intact NST - FHR Rate Baby A Baseline: 140 Variability:: Moderate Accelerations:: 15 x 15 Decelerations:: None NST Reactive:: Yes FHR Category:: Category I Uterine Activity:: irregular ctx Impression/Plan 22 yo with gestational hypertension monitored overnight, normal labs, headache improved. recommend exp managment and deliver after 37 weeks
== END 2018-01-11 09:40 | disposition home or self-care (01) ==
LOC: WPOUT 21:17 → WP 21:17
PROVIDERS: Visit Provider Obstetrics & Gynecology
DX: O13.3 Gestational [pregnancy-induced] hypertension without significant proteinuria, third trimester (principal); O47.03 False labor before 37 completed weeks of gestation, third trimester; Z3A.36 36 weeks gestation of pregnancy; Z87.59 Personal history of other complications of pregnancy, childbirth and the puerperium
CPT/HCPCS: 36415; 59025; 59050; 82565; 82570; 84156; 84450; 84460; 84550; 85027; 85610; 85730; 93005; 94760; 99218; A4216; G0378

== ENCOUNTER 2018-01-15 14:27 | Outpatient (CLI) | payer OTHER, MEDICAID, SELFPAY ==
--- NOTE | 2018-01-15 11:50 | US_ITS ---
STUDY: SECOND AND THIRD TRIMESTER OBSTETRICAL ULTRASOUND - LIMITED REASON FOR EXAM: Female, 22 years old. growth LMP: 04/22/2017 PRIOR ULTRASOUND: 11/01/2017 TECHNIQUE: Transabdominal ultrasound evaluation was performed. FINDINGS: There is a single intrauterine fetus. The fetus is in a cephalic presentation. There is demonstrated cardiac activity with a heart rate of 156 bpm. There is a normal amniotic fluid volume. The largest amniotic fluid pocket measures 3.4 x 2.7 cm. The amniotic fluid index (JOSHUA) is 11.1 cm. The placenta is posterior in location and is not low lying. There are Grade 2 placental changes. The cervix is not visualized. BIOMETRY: BPD: 9.2 cm: 37 weeks, 3 days HC: 32.7 cm: 37 weeks, 1 days AC: 33.6 cm: 37 weeks, 4 days FL: 7.4 cm: 38 weeks, 1 days Age by LMP: 38 weeks, 2 days. JESSEE by LMP: 01/27/2018. age by prior US: 37 weeks, 2 days. JESSEE by prior US: 02/02/2018. age by current US: 37 weeks, 4 days. JESSEE by current US: 02/01/2018. Estimated weight: 3239 grams, +/- 473 grams, 45 percentile. Gender: Indeterminant US/OB Limited With Biometrics IMPRESSION: 1. Single live intrauterine in vertex presentation 37 week 4 day gestation with an JESSEE of 02/01/2018 and appropriate interval growth. 2. Posterior grade 2 placenta, not low lying. Cervix is obscured. 3. Amniotic fluid index 11.1 cm. 4. Estimated weight 3239 g or 45 percentile. Electronically Signed: Falguni Li MD at 7:45 EDT , Service support ,
[2018-01-15 14:40] VITALS: BMI 30.5
[2018-01-15 15:21] LABS: Hematocrit 37.7 % (37-47); Hemoglobin 13.1 g/dl (12.0-15.0); Mean Corp Hgb Conc 34.7 g/gl (32-36); Mean Corpuscular Volume 92.2 fL (81-99); Mean Platelet Vol. 9.1 fl (6.2-12.0); Platelet Count 257 K/mm3 (150-450); RBC Distribution Width CV 12.5 % (11.6-14.6); RBC Distribution Width SD 41.4 fl (35.1-43.9); Red Blood Count 4.09 M/mm3 (4.2-5.4); White Blood Count 9.1 K/mm3 (4.4-11.0)
[2018-01-15 15:24] LABS: Scan Indicated on CBC? Y/N NO
[2018-01-15 15:28] LABS: International Normalized Ratio 0.9; Prothrombin Time (Protime)PT. 12.5 SECONDS (11.7-14.9)
[2018-01-15 15:29] LABS: AST(SGOT) 16 U/L (15-37); Alanine Aminotransfer ALT/SGPT 19 U/L (13-56); Creatinine, Serum 0.51 mg/dL (0.55-1.02); EST Glomerular Filtration Rate 158 mL/min (>60); Est Glom Filt Rate - Afr Amer 191 mL/min (>60); Estimated Creatinine Clearance 146.88 ml/min; Uric Acid 2.5 mg/dL (2.6-6.0)
[2018-01-15 15:36] LABS: Protein, Urine (Random) 11.9 mg/dL (<11.9); Protein:Creat Ratio 155 mg/g CRE (0-200)
[2018-01-15 15:43] LABS: Bacteria 0 SEEN /hpf (None Seen); Mucous, Urine 0 SEEN /hpf (<or=2+); Red Blood Cells-Urine 0 SEEN /hpf (0-5); White Blood Cells 0 SEEN /hpf (0-5)
[2018-01-15 16:09] LABS: Color, Urine Yellow (Yellow); Glucose, Dipstick Normal (Normal); Ketone-Dipstick Negative (Negative); Leukocyte Esterase-Dipstick Negative /ul (Negative); Nitrite-Dipstick Negative (Negative); Occult Blood-Urine Negative /ul (Negative); Protein-Dipstick Negative (Negative); Specific Gravity, Urine 1.015 (1.002-1.030); Urine Bilirubin Dipstick Negative (Negative); Urine Clarity Cloudy (Clear); Urine Urobilinogen Normal (Normal)
[2018-01-15 16:19] LABS: Amorphous Sediment 2+; Squamous Epithelial Cells - UA 0-5 SEEN /hpf (5-10)
[2018-01-15] MEDS: 0.9% Normal Saline 1,000 ML 1000 ML IV (17:55)
--- NOTE | 2018-01-15 18:00 | OB.TRI.NOTE ---
- Problem List (1) 37 weeks gestation of Status: Acute (2) Headache Status: Acute History of Present Illness Date of Service: 01/15/18 Was patient seen by the physician?: Yes Reason For Visit: R/O PIH Date of Service: 01/15/18 Final JESSEE: 02/03/18 Gestational age: 37 Weeks and 2 Days History of Present Illness: 22yo @ 37 2/7wga with h/o gestational HTN and prior section presents with c/o occipital headache, vision changes and swelling. Nausea this morning, now resolved and no vomiting. Has dyspnea with increased activity. Denies abdominal pain, vaginal bleeding, leaking of fluid. Relates intermittent mild contractions. She has good movement. She relates prior 35 week delivery for elevated blood pressures and headache. She received magnesium at that time. Her blood pressures took more than 1 year post to normalize and were erratic. She notes she experienced chest pain when BPs severely elevated. No chest pain today. She was followed by Cardiology and had Cardiology work up including EKG and Echocardiogram. Denies history of valvular disorder or murmur. She notes her elevated BPs and associated symptoms were exacerbated with menses, but otherwise, no known etiology or precipitants. She has not used hormonal contraceptives in the past. 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 She has a blood pressure cuff at home that she uses daily and when she has these headaches. Mckenzie reports that Tylenol does not work. She drinks 1c. coffee daily. No other caffeinated beverages. Allergies amoxicillin Allergy (Verified 01/15/18 13:53) Hives Iodinated Contrast- Oral and IV Dye [Iodinated Contrast Media - IV Dye] Allergy (Verified 01/15/18 13:53) Hives pamabrom [From Midol] Allergy (Verified 01/15/18 13:53) Other blown pupil and hives - Pertinent Past Medical History Medical History: Past Medical History (Last Reviewed 01/15/18 @ 13:52 by Cheli Herrera) Preeclampsia Surgical History: Past Surgical History (Last Reviewed 01/15/18 @ 13:52 by Cheli Herrera) delivery delivered Physical Exam Vitals: AVSS General: Alert, Oriented x3, Cooperative, No apparent distress HEENT: Atraumatic, Normocephalic Cardiovascular: Regular rate, Regular Rhythm, Normal S1, Normal S2, No murmurs Lungs: Clear to auscultation, Normal air movement, No rhonchi, No wheeze, No rales Abdomen: Soft, Non Tender, Non-Distended, Gravid Extremities:: No edema Neurological: - - +2 b/l UE DTRs, +1 b/l LE DTRs, no clonus Estimated gestational size: Appropriate for gestational size Cervix Dilation (cm): 0 - SVE per RN T [place] Station: -3 Effacement (%): 0 NST - FHR Rate Baby A Baseline: 135 Variability:: Moderate Accelerations:: 15 x 15 Decelerations:: None NST Reactive:: Yes FHR Category:: Category I Uterine Activity:: 1/10 min Impression/Plan 22yo @ 37 2/7wga with headache, Cat I FHR -BPs and exam unremarkable, preeclamptic labs sent and normal -Ordered IV hydration, cup of clear coffee/caffeine and Reglan IV. Then NPO -Continuous monitoring -If headache persists, plan for delivery and consider head CT. - status reassuring.
[2018-01-15] MEDS: Metoclopramide 10 MG/2 ML Vial IV (18:03)
--- NOTE | 2018-01-15 19:30 | OB.TRI.PN ---
Progress Notes Date of Service: 01/15/18 Progress Note: Mckenzie relates that her headache is resolved. She denies vision changes, nausea. She feels well enough to go home. Denies abdominal pain apart from occasional contractions. FHR 135, moderate variability, + accelerations, no decelerations. TOOC 0-1/0 min. Will plan to d/c home given resolution of headache, normal BPs and normal labs. Reviewed with patient preeclampsia and labor precautions. Encouraged her to call with any questions or concerns. Recommend f/u with Dr. Mike in 2 days for BP check.
== END 2018-01-15 19:50 | disposition home or self-care (01) ==
LOC: WPOUT 14:32 → US 14:35 → WPOUT 14:35 → WP 14:36
PROVIDERS: Visit Provider Obstetrics & Gynecology
DX: O99.89 Other specified diseases and conditions complicating pregnancy, childbirth and the puerperium (principal); R51 Headache; Z3A.37 37 weeks gestation of pregnancy
CPT/HCPCS: 96361 ×2; 96374; 36415; 59025; 59050; 76816; 81001; 82565; 82570; 84156; 84450; 84460; 84550; 85027; 85610; 85730; 87086; 87088; 99218; J7030; G0378

== ENCOUNTER 2018-01-20 10:10 | Inpatient (IN) | payer OTHER, MEDICAID, SELFPAY ==
[2018-01-20] VITALS (15 sets, daily range): BP systolic 99–119; BP diastolic 51–78; PULSE 68–87; RESP 16–18; TEMP 35.9–36.4; O2SAT 96–100; BMI 30.8
--- NOTE | 2018-01-20 06:48 | PCM.HP.OB ---
- Problem List (1) 37 weeks gestation of Status: Acute (2) Headache Status: Acute (3) Elevated blood pressure affecting in third trimester, antepartum Status: Acute (4) GBS (group B Streptococcus carrier), +RV culture, currently Status: Acute Comment: tx in labor (5) Rh negative state in antepartum period Status: Acute Comment: patient had a negative reaction to previous rhogam, declining all rhogam shots this , planning tubal ligation. counseled patient regarding risk of anemia in a subsequent . (6) Family history of congenital heart defect Status: Acute Comment: mfm consult (7) Family history of cleft lip and palate Status: Acute Comment: target us (8) Previous delivery affecting , antepartum Status: Acute Comment: planning RLTCS and considering TL (9) History of pre-eclampsia in prior , currently in first trimester Status: Acute Comment: baseline labs, take 81 mg asa daily starting at 12 weeks (10) Hyperemesis affecting , antepartum Status: Acute Comment: phenergan (11) Supervision of high-risk Status: Acute Qualifiers: Comment: PRR JESSEE 02/03/18 PC Giovana Serge Refused anatomy scan due to cost History Date of Admission: 01/20/18 Final JESSEE: 02/03/18 Gestational age: 38 Weeks and 0 Days History of this : This is a 22 year-old, , at 38 weeks gestational age with GHTN. she has a history of preeclampsia with her first . she has had intermittently elevated bps the end of this . recommend RLTCS and BTO desired sterilization. Medical History: Medical History (Last Reviewed 01/15/18 @ 13:52 by Cheli Herrera) Preeclampsia O14.90 Surgical History: Surgical History (Last Reviewed 01/15/18 @ 13:52 by Cheli Herrera) delivery delivered O82 Allergies amoxicillin Allergy (Verified 01/15/18 13:53) Hives Iodinated Contrast- Oral and IV Dye [Iodinated Contrast Media - IV Dye] Allergy (Verified 01/15/18 13:53) Hives pamabrom [From Midol] Allergy (Verified 01/15/18 13:53) Other blown pupil and hives Home Medications: Home Medications acetaminophen 325 mg tablet 500 mg PO ONCE PRN 06/17/17 vitamin,calcium,hrpvowiu-mayx-zesin acid tablet 1 tab PO QDAY 06/17/17 cyclobenzaprine 10 mg tablet 10 mg PO TID PRN #30 tab 12/17/17 Smoking Status: Former smoker Alcohol: None Number of Fetus(es): 1 Heart Tracin History Past Pregnancies: Past Pregnancies previuos term cs preeclampsia 37 weeks Delivery Date Name GA/Weeks Outcome Route Weight Gender Labor Length Anesthesia Delivery Location Provider FOB Labs: Social History Smoking Status Former smoker Social History Smoking Status Former smoker Expected Delivery Method: Repeat Section Review of Systems Constitutional: Denies: Fever, Malaise Eyes: Denies: Blurred vision, Vision Change HEENT: Denies: Head Aches, Visual Changes Cardiovascular: Denies: Chest Pain, Palpitations Respiratory: Denies: Cough, Shortness of Breath, Wheezing Gastrointestinal: Denies: Abdominal Pain, Diarrhea, Nausea, Vomiting Genitourinary: Denies: Dysuria, Hematuria Musculoskeletal: Denies: Joint Pain, Muscle pain Skin: Denies: Lesions, Rash Neurological: Denies: Blurred vision, Focal weakness, Headaches Psychiatric: Denies: Anxiety, Depression Endocrine: Denies: Heat/ Cold Intolerance Hematologic/ Lymphatic: Denies: Easy Bruising, Easy Bleeding Physical Exam General: Alert, Cooperative, No apparent distress HEENT: Atraumatic, Normocephalic. Negative for: Thyromegaly, Lymphadenopathy Cardiovascular: Regular rate Lungs: Normal air movement Abdomen: Soft, Non Tender, Gravid Neurological: Deep Tendon Reflexes 2+/4 and Symmetrical, Neuro grossly intact. Negative for: Clonus GUN NUMBER: Normal external genitalia. Negative for: Vulvar lesions Estimated gestational size: Appropriate for gestational size Presentation: Cephalic Assessment/Plan All Active Problems (Last Reviewed 01/15/18 @ 13:52 by Cheli Herrera) 37 weeks gestation of (Acute) Headache (Acute) Elevated blood pressure affecting in third trimester, antepartum (Acute) GBS (group B Streptococcus carrier), +RV culture, currently (Acute) Segmental and somatic dysfunction of sacral region (Acute) Segmental and somatic dysfunction of pelvic region (Acute) Segmental and somatic dysfunction of lumbar region (Acute) Right lumbar radiculitis (Acute) Threatened labor (Acute) Rh negative state in antepartum period (Acute) Family history of congenital heart defect (Acute) Family history of cleft lip and palate (Acute) Previous delivery affecting , antepartum (Acute) History of pre-eclampsia in prior , currently in first trimester (Acute) Hyperemesis affecting , antepartum (Acute) Supervision of high-risk (Acute) Gestational hypertension (Resolved) Prematurity of fetus (Resolved) This is a 22 year-old, , at 38 weeks gestational age with GHTN declines TOLAC GHTN recommend early delivery RLTCS BTO- desired sterilization rh negative- declined rhogam in due to sterilization
--- NOTE | 2018-01-20 06:52 | HP.PCM_ITS ---
- Problem List (1) 37 weeks gestation of Status: Acute (2) Headache Status: Acute (3) Elevated blood pressure affecting in third trimester, antepartum Status: Acute (4) GBS (group B Streptococcus carrier), +RV culture, currently Status: Acute Comment: tx in labor (5) Rh negative state in antepartum period Status: Acute Comment: patient had a negative reaction to previous rhogam, declining all rhogam shots this , planning tubal ligation. counseled patient regarding risk of anemia in a subsequent . (6) Family history of congenital heart defect Status: Acute Comment: mfm consult (7) Family history of cleft lip and palate Status: Acute Comment: target us (8) Previous delivery affecting , antepartum Status: Acute Comment: planning RLTCS and considering TL (9) History of pre-eclampsia in prior , currently in first trimester Status: Acute Comment: baseline labs, take 81 mg asa daily starting at 12 weeks (10) Hyperemesis affecting , antepartum Status: Acute Comment: phenergan (11) Supervision of high-risk Status: Acute Qualifiers: Comment: PRR JESSEE 02/03/18 PC Giovana Serge Refused anatomy scan due to cost History Date of Admission: 01/20/18 Final JESSEE: 02/03/18 Gestational age: 38 Weeks and 0 Days History of this : This is a 22 year-old, , at 38 weeks gestational age with GHTN. she has a history of preeclampsia with her first . she has had intermittently elevated bps the end of this . recommend RLTCS and BTO desired sterilization. Medical History: Medical History (Last Reviewed 01/15/18 @ 13:52 by Cheli Herrera) Preeclampsia O14.90 Surgical History: Surgical History (Last Reviewed 01/15/18 @ 13:52 by Cheli Herrera) delivery delivered O82 Allergies amoxicillin Allergy (Verified 01/15/18 13:53) Hives Iodinated Contrast- Oral and IV Dye [Iodinated Contrast Media - IV Dye] Allergy (Verified 01/15/18 13:53) Hives pamabrom [From Midol] Allergy (Verified 01/15/18 13:53) Other blown pupil and hives Home Medications: Home Medications acetaminophen 325 mg tablet 500 mg PO ONCE PRN 06/17/17 vitamin,calcium,zxeufydp-kgzn-uyzbl acid tablet 1 tab PO QDAY 06/17/17 cyclobenzaprine 10 mg tablet 10 mg PO TID PRN #30 tab 12/17/17 Smoking Status: Former smoker Alcohol: None Number of Fetus(es): 1 Heart Tracin History Past Pregnancies: Past Pregnancies previuos term cs preeclampsia 37 weeks Delivery Date Name GA/Weeks Outcome Route Weight Gender Labor Length Anesthesia Delivery Location Provider FOB Labs: Social History Smoking Status Former smoker Social History Smoking Status Former smoker Expected Delivery Method: Repeat Section Review of Systems Constitutional: Denies: Fever, Malaise Eyes: Denies: Blurred vision, Vision Change HEENT: Denies: Head Aches, Visual Changes Cardiovascular: Denies: Chest Pain, Palpitations Respiratory: Denies: Cough, Shortness of Breath, Wheezing Gastrointestinal: Denies: Abdominal Pain, Diarrhea, Nausea, Vomiting Genitourinary: Denies: Dysuria, Hematuria Musculoskeletal: Denies: Joint Pain, Muscle pain Skin: Denies: Lesions, Rash Neurological: Denies: Blurred vision, Focal weakness, Headaches Psychiatric: Denies: Anxiety, Depression Endocrine: Denies: Heat/ Cold Intolerance Hematologic/ Lymphatic: Denies: Easy Bruising, Easy Bleeding Physical Exam General: Alert, Cooperative, No apparent distress HEENT: Atraumatic, Normocephalic. Negative for: Thyromegaly, Lymphadenopathy Cardiovascular: Regular rate Lungs: Normal air movement Abdomen: Soft, Non Tender, Gravid Neurological: Deep Tendon Reflexes 2+/4 and Symmetrical, Neuro grossly intact. Negative for: Clonus HEALTHCARE ADMINISTRATOR: Normal external genitalia. Negative for: Vulvar lesions Estimated gestational size: Appropriate for gestational size Presentation: Cephalic Assessment/Plan All Active Problems (Last Reviewed 01/15/18 @ 13:52 by Cheli Herrera) 37 weeks gestation of (Acute) Headache (Acute) Elevated blood pressure affecting in third trimester, antepartum ( Acute) GBS (group B Streptococcus carrier), +RV culture, currently (Acute) Segmental and somatic dysfunction of sacral region (Acute) Segmental and somatic dysfunction of pelvic region (Acute) Segmental and somatic dysfunction of lumbar region (Acute) Right lumbar radiculitis (Acute) Threatened labor (Acute) Rh negative state in antepartum period (Acute) Family history of congenital heart defect (Acute) Family history of cleft lip and palate (Acute) Previous delivery affecting , antepartum (Acute) History of pre-eclampsia in prior , currently in first trimester (Acute) Hyperemesis affecting , antepartum (Acute) Supervision of high-risk (Acute) Gestational hypertension (Resolved) Prematurity of fetus (Resolved) This is a 22 year-old, , at 38 weeks gestational age with GHTN declines TOLAC GHTN recommend early delivery RLTCS BTO- desired sterilization rh negative- declined rhogam in due to sterilization
[2018-01-20 11:16] LABS: Absolute Lymphocyte Count 1.83 X10^3/ul (0.83-4.51); Basophil# 0.01 X10^3/uL; Basophil% 0.1 % (0-1); Eosinophil# 0.02 X10^3/uL; Eosinophils% 0.2 % (0-5); Hematocrit 37.2 % (37-47); Hemoglobin 13.2 g/dl (12.0-15.0); Lymphocyte # 1.83 X10^3/ul (4.0); Lymphocyte % 18.6 % (19-41); Mean Corp Hgb Conc 35.5 g/gl (32-36); Mean Corpuscular Hgb 32.6 pg (27.0-32.0); Mean Corpuscular Volume 91.9 fL (81-99); Mean Platelet Vol. 9.1 fl (6.2-12.0); Monocyte# 0.86 X10^3/uL; Monocyte% 8.7 % (0-10); Neutrophil # 6.99 X10^3/uL (2.7-7.7); Neutrophil % 71.2 % (47-70); POSITIVE COUNT NO; POSITIVE DIFFERENTIAL NO; POSITIVE MORPHOLOGY NO; Platelet Count 256 K/mm3 (150-450); RBC Distribution Width CV 12.7 % (11.6-14.6); RBC Distribution Width SD 41.9 fl (35.1-43.9); Red Blood Count 4.05 M/mm3 (4.2-5.4); White Blood Count 9.8 K/mm3 (4.4-11.0)
[2018-01-20] MEDS: Sodium Citrate/Citric Acid 30 ML UDC PO (15:45)
[2018-01-20] MEDS: Lactated Ringers 1,000 ML 100 ML IV ×2 (16:00→20:48)
--- NOTE | 2018-01-20 16:32 | OP.PCM_ITS ---
Problem List (1) 37 weeks gestation of Status: Acute (2) Headache Status: Acute (3) Elevated blood pressure affecting in third trimester, antepartum Status: Acute (4) GBS (group B Streptococcus carrier), +RV culture, currently Status: Acute Comment: tx in labor (5) Rh negative state in antepartum period Status: Acute Comment: patient had a negative reaction to previous rhogam, declining all rhogam shots this , planning tubal ligation. counseled patient regarding risk of anemia in a subsequent . (6) Family history of congenital heart defect Status: Acute Comment: mfm consult (7) Family history of cleft lip and palate Status: Acute Comment: target us (8) Previous delivery affecting , antepartum Status: Acute Comment: planning RLTCS and considering TL (9) History of pre-eclampsia in prior , currently in first trimester Status: Acute Comment: baseline labs, take 81 mg asa daily starting at 12 weeks (10) Hyperemesis affecting , antepartum Status: Acute Comment: phenergan (11) Supervision of high-risk Status: Acute Qualifiers: Comment: PRR JESSEE 02/03/18 PC Giovana Serge Refused anatomy scan due to cost Report of Operation Date of Procedure: 01/20/18 Pre-Operative Diagnosis: ghtn prev cs desired sterilization Post-Operative Diagnosis: same Surgery/Procedure Performed:: RLTCS BTL Description of Surgical Findings:: nl uterus tubes ovaries receipt and report clerk: Yariel Torres Type of Anesthesia:: Spinal Special Medications: ancef Specimen's removed: male infant Drains: guillen Estimated Blood Loss (mL): 500 Fluids Replaced: crystalloid Description of Procedure: The patient is a 22 yo ghtn prev cs presented for repeat . Spinal anesthesia was placed without difficulty. Guillen catheter was placed. The patient was placed in the dorsal supine position with leftward tilt. Patient was prepped and draped in the normal sterile fashion. Pfannenstiel skin incision was made with the scalpel and carried through to the underlying layer of fascia with the scalpel. Fascia was nicked in the midline and the incision extended laterally. The rectus bellies were dissected off superiorly and inferiorly with out complication both sharply and bluntly. The peritoneum was entered digitally. The incision was stretched and a low transverse uterine incision was made with the scalpel. The infant's head was delivered atraumatically followed by the anterior and posterior shoulders without complication the rest of the infant delivered. The cord was clamped and cut and the was handed off to awaiting nurse. The placenta was delivered spontaneously immediately following and was noted to be intact and have a three- vessel cord. The uterus was exteriorized cleared of all clots and debris, and the incision was closed in a single layer closure using #1 Monocryl. bilateral tubes were occluded with the filshie clip devices. The uterus was returned to the maternal abdomen and gutters were cleared of all clots and debris. The ovaries and fallopian tubes were noted to be within normal limits. The peritoneum was closed with 3-0 Monocryl in a running fashion. Fascia was closed with 0 PDS in a running fashion. Subcutaneous tissue was copiously irrigated and the skin was closed with 3-0 Monocryl in a subcuticular fashion. Steri-Strips and Mepilex dressing were applied without complication. Patient was taken to recovery in stable condition. - Complications none
[2018-01-20] MEDS: Oxytocin 30 units/NS 500 ml 30 UNITS/500 ML IV.SOLN 167 UNITS IV (16:45)
[2018-01-20] MEDS: Ondansetron 4 MG/2 ML Vial IV (16:49)
--- NOTE | 2018-01-20 18:41 | NURSING ---
Discussed patients blood type and babies blood type being O positive. Pt refused Rhogam workup. Pt stated that she did not want the Rhogam shot or work up completed. Pt stated she had a reaction to her Rhogam shot last time and refused in utero since she was getting her tubes tied. Educated that even getting tubes tied isn't always 100% effective, pt stated she understood that miscarriage is a risk if she were to get .
[2018-01-20] MEDS: Nalbuphine 10 MG/ML Ampul 5 MG IV (20:15)
[2018-01-20] MEDS: Ketorolac 30 MG/ML Syringe IV (23:32)
[2018-01-21] VITALS (15 sets, daily range): BP systolic 112–126; BP diastolic 71–89; PULSE 68–89; RESP 15–18; TEMP 36.2–36.9; O2SAT 95–100
[2018-01-21] MEDS: Nalbuphine 10 MG/ML Ampul 5 MG IV (01:45)
[2018-01-21] MEDS: Ketorolac 30 MG/ML Syringe IV ×3 (06:33→18:32)
[2018-01-21 06:36] LABS: Hematocrit 32.1 % (37-47); Hemoglobin 11.4 g/dl (12.0-15.0); Mean Corp Hgb Conc 35.5 g/gl (32-36); Mean Platelet Vol. 9.1 fl (6.2-12.0); Platelet Count 230 K/mm3 (150-450); RBC Distribution Width CV 12.6 % (11.6-14.6); RBC Distribution Width SD 41.4 fl (35.1-43.9); Red Blood Count 3.45 M/mm3 (4.2-5.4); White Blood Count 10.2 K/mm3 (4.4-11.0)
[2018-01-21 06:41] LABS: Scan Indicated on CBC? Y/N NO
--- NOTE | 2018-01-21 07:48 | PCM.PN.OB ---
Subjective: Doing well. No CP, SOB. - Physical Exam General: Alert, Oriented x3 Abdomen: Soft, Non-Distended, - - F Vital Signs Temp Pulse Resp BP Pulse Ox 97.6 F L 82 17 112/68 97 01/21/18 02:00 01/21/18 07:00 01/21/18 07:00 01/20/18 23:32 01/21/18 07:00 Oxygen Delivery Method Room Air Weight: 179 lb 7.3 oz Body Mass Index (BMI) 30.8 Intake and Output for Last 24 Hours 01/19/18 01/20/18 01/21/18 23:59 23:59 23:59 Intake Total 4050 / 4050 Output Total 1999 / 1999 Balance 2049 / 2049 Laboratory Tests Past 24 Hrs 01/20/18 01/20/18 01/21/18 11:00 11:00 06:15 WBC 9.8 10.2 RBC 4.05 L 3.45 L Hgb 13.2 11.4 L Hct 37.2 32.1 L MCV 91.9 93.0 MCH 32.6 H 33.0 H MCHC 35.5 35.5 RDW 12.7 12.6 RDW Differential 41.9 41.4 Plt Count 256 230 MPV 9.1 9.1 Immature Gran % (Auto) 1.200 H Neut % (Auto) 71.2 H Lymph % (Auto) 18.6 L [place] % (Auto) 8.7 Eos % (Auto) 0.2 Baso % (Auto) 0.1 Absolute Neuts (auto) 7.0 Absolute Lymphs (auto) 1.83 Total Counted Not Reportable Blood Type O NEGATIVE Antibody Screen NEGATIVE Medical Necessity - Tobacco Use Smoking Status: Never smoker Assessment/Plan All Active Problems (Last Reviewed 01/15/18 @ 13:52 by Cheli Herrera) 37 weeks gestation of (Acute) Headache (Acute) Elevated blood pressure affecting in third trimester, antepartum (Acute) GBS (group B Streptococcus carrier), +RV culture, currently (Acute) Segmental and somatic dysfunction of sacral region (Acute) Segmental and somatic dysfunction of pelvic region (Acute) Segmental and somatic dysfunction of lumbar region (Acute) Right lumbar radiculitis (Acute) Threatened labor (Acute) Rh negative state in antepartum period (Acute) Family history of congenital heart defect (Acute) Family history of cleft lip and palate (Acute) Previous delivery affecting , antepartum (Acute) History of pre-eclampsia in prior , currently in first trimester (Acute) Hyperemesis affecting , antepartum (Acute) Supervision of high-risk (Acute) Gestational hypertension (Resolved) Prematurity of fetus (Resolved) LTRCS POD#1: Routine care. Pain controlled. Rh negative
[2018-01-21] MEDS: 0.9% Saline Lock 10 ML Syringe IV ×2 (08:18→18:32)
[2018-01-21] MEDS: Senna/Docusate Sodium 1 Tablet PO (12:08)
[2018-01-22] MEDS: Naproxen 250 MG Tablet PO ×2 (02:23→10:36)
[2018-01-22 02:36] VITALS: BP 120/85; PULSE 85; RESP 16; TEMP 36.6; O2SAT 98
--- NOTE | 2018-01-22 07:55 | PCM.PN.OB ---
Subjective: No SOB, CP but some discomfort upper right shoulder but states has improved. Pain controlled with motrin. Ambulating well. - Physical Exam General: Alert, Oriented x3 Abdomen: Soft, Non-Distended, - - FF below U. No further bleeding noted on dressing. Minimal tenderness Vital Signs Temp Pulse Resp BP Pulse Ox 97.9 F 85 16 120/85 H 98 01/22/18 02:36 01/22/18 02:36 01/22/18 02:36 01/22/18 02:36 01/22/18 02:36 Oxygen Delivery Method Room Air Weight: 179 lb 7.3 oz Body Mass Index (BMI) 30.8 Intake and Output for Last 24 Hours 01/20/18 01/21/18 01/22/18 23:59 23:59 23:59 Intake Total 4050 / 4050 Output Total 1999 1700 / 1700 Balance 2049 / 2049 -1700 / -1700 Medical Necessity - Tobacco Use Smoking Status: Never smoker Assessment/Plan All Active Problems (Last Reviewed 01/15/18 @ 13:52 by Cheli Herrera) 37 weeks gestation of (Acute) Headache (Acute) Elevated blood pressure affecting in third trimester, antepartum (Acute) GBS (group B Streptococcus carrier), +RV culture, currently (Acute) Segmental and somatic dysfunction of sacral region (Acute) Segmental and somatic dysfunction of pelvic region (Acute) Segmental and somatic dysfunction of lumbar region (Acute) Right lumbar radiculitis (Acute) Threatened labor (Acute) Rh negative state in antepartum period (Acute) Family history of congenital heart defect (Acute) Family history of cleft lip and palate (Acute) Previous delivery affecting , antepartum (Acute) History of pre-eclampsia in prior , currently in first trimester (Acute) Hyperemesis affecting , antepartum (Acute) Supervision of high-risk (Acute) Gestational hypertension (Resolved) Prematurity of fetus (Resolved) RLTCS POD#2: Routine care. Controll pain with OTC meds prn. . Refuses rhogam for Rh neg status. Home today
[2018-01-22 08:00] VITALS: BP 124/91; PULSE 78; RESP 16; TEMP 36.4
[2018-01-22] MEDS: Acetaminophen 500 MG Tablet 1000 MG PO (08:15)
--- NOTE | 2018-01-22 08:18 | DCINST_ITS ---
Additional Instructions: If you experience any of the following, contact your healthcare provider. * Bleeding that soaks a pad every hour for 2 hours * Fever 100.4 or higher * Unrelieved incision or abdominal pain * Swelling, redness, discharge or bleeding from your incision or episiotomy site * Your incision begins to separate * Problems urinating (including inability to urinate or burning while urinating). * Visual changes * Severe headache * Flu-like symptoms * Pain or redness in one of both of your breasts * Pain, warmth, tenderness or swelling in your legs, especially the calf area * Frequent nausea and vomiting * Symptoms of depression or anxiety If you experience any of the following, call 911 or go to the nearest Emergency Room. * Chest pain * Problems breathing * Seizure activity * Partial or complete paralysis of a body part, slurred speech, weakness or drooping of the face, or a sudden inability to walk or hold your balance Allergies/Adverse Reactions: Allergies amoxicillin Allergy (Verified 01/15/18 13:53) Hives Iodinated Contrast- Oral and IV Dye [Iodinated Contrast Media - IV Dye] Allergy (Verified 01/15/18 13:53) Hives pamabrom [From Midol] Allergy (Verified 01/15/18 13:53) Other blown pupil and hives Medications to take at Discharge acetaminophen 325 mg tablet 500 mg PO ONCE PRN 06/17/17 vitamin,calcium,pfzaotxm-hjuo-tkjyz acid tablet 1 tab PO QDAY 06/17/17 cyclobenzaprine 10 mg tablet 10 mg PO TID PRN #30 tab 12/17/17 Naproxen 500 mg PO BID PRN #60 tablet 01/22/18 Naproxen 500 mg PO BID PRN #60 tablet 01/22/18 Oxycodone HCl/Acetaminophen [Percocet 5/325] 1 - 2 tablet PO Q4H PRN PRN 3 Days #15 tablet 01/22/18 Oxycodone HCl/Acetaminophen [Percocet 5/325] 1 - 2 tablet PO Q4H PRN PRN 3 Days #15 tablet 01/22/18 The following prescriptions were given: Oxycodone HCl/Acetaminophen [Percocet 5/325] 1 - 2 tablet PO Q4H PRN PRN 3 Days #15 tablet PRN Reason: Pain Oxycodone HCl/Acetaminophen [Percocet 5/325] 1 - 2 tablet PO Q4H PRN PRN 3 Days #15 tablet PRN Reason: Pain Naproxen 500 mg PO BID PRN #60 tablet PRN Reason: Pain Naproxen 500 mg PO BID PRN #60 tablet PRN Reason: Pain Follow-Up: Call to make an appointment with your doctor for an incision check in 1-2 weeks. You will also need a 6 week post- follow up appointment. Test results from this visit will be discussed in further detail at your follow- up appointment, if applicable. Primary Care Physician: Care Physician,No Primary [Primary Care Provider] -
[2018-01-22 09:30] VITALS: BP 111/80
[2018-01-22 11:02] VITALS: BP 120/88
--- NOTE | 2018-01-22 13:15 | CASEMGMT ---
Social Work Brief Assessment - Labor and Delivery Unit Date of Referral/Notification: 01/21/2018 Time of Referral: 08 Referred By: nursing staff, verbal notification Reason for Referral: concern for maternal anxiety Date of Intervention: 01/22/2018 Time of Intervention: 1315 Informant: Medical record, mother of baby (MOB) Mckenzie Wiseman, and father of baby (FOB) Serge Wiseman. History: MOB is a 22-year-old female, G2, P1 to 2 after delivering baby this admission. Baby to be named Serge. FOB is Serge and older child at home is Giovana (born 2014). MOB with care starting in the first trimester. MOB reports housing situation is adequate, to have baby supplies, and to have support from FOB and from MOB?s mother. MOB shares that her father December 30, 2016, which was an accidental . MOB reports that her mother has really invested a lot of time into MOB and the family, since the of MOB?s father. FOB reports that this has seemed to help MOB?s mom out a lot, to have grandchildren to focus on. No reports of any drug use or abuse history. MOB denies any mental health treatment history, denies any history of depression or anxiety. MOB reports that becomes physically ill during , that does not work out well for MOB as far as physical symptoms. MOB reports since delivering that feels much better, more upbeat and happy. MOB reports that maybe felt a bit down during , but this was in relation got physical symptoms and not feeling up to doing usual activities at home. Assessment: MOB denies feeling depressed currently. MOB denies anxiety. MOB and FOB both listened to education on depression and accepting of resources offered by this poem writer. MOB also accepting of [facility] list of group social worker agencies including mental health support. MOB reports the main worry right now is just getting home and acclimating to home with the older child. MOB reports to have a game plan however, in how will include Giovana, so reports belief that things will go well overall. MOB reports to be coping with the loss of her father a year ago, that worries more about MOB's mother. MOB reports that FOB must return to work right way, but that MOB?s mother will be around to help MOB at home, with transition home with baby and Giovana. MOB denies any need for home going. MOB smiling, talkative, held good eye contact, and pleasant during social work visit. FOB calm, giving input at appropriate times, and appearing supportive of MOB. NO reports or concerns by nursing about mother/child interactions or bonding. Plan: MOB and baby to home. [facility] resources provided, mental health resources provided in case need arises in the future and depression packet. No further needs requested or indicated. -RENA Luke, SWIMMING POOL INSTALLER
== END 2018-01-22 14:00 | disposition home or self-care (01) | DRG 765 ==
PROVIDERS: Admitting Provider Obstetrics & Gynecology; Visit Provider Obstetrics & Gynecology
PROC: 10D00Z1 Extraction of Products of Conception, Low, Open Approach (ICD-10-PCS; CPT 59514; principal; 2018-01-20 11:45)
DX: O34.211 Maternal care for low transverse scar from previous cesarean delivery (principal); O36.0130 Maternal care for anti-D [Rh] antibodies, third trimester, not applicable or unspecified; O13.3 Gestational [pregnancy-induced] hypertension without significant proteinuria, third trimester; O99.824 Streptococcus B carrier state complicating childbirth; O21.0 Mild hyperemesis gravidarum; O90.89 Other complications of the puerperium, not elsewhere classified; M25.511 Pain in right shoulder; Z30.2 Encounter for sterilization; Z87.891 Personal history of nicotine dependence; Z87.59 Personal history of other complications of pregnancy, childbirth and the puerperium; Z82.79 Family history of other congenital malformations, deformations and chromosomal abnormalities; Z3A.37 37 weeks gestation of pregnancy; Z37.0 Single live birth
CPT/HCPCS: 85025; 85027; 86850; 86900; 99218; J7120; A4216; G0378; J2405

== ENCOUNTER 2018-11-29 07:05 | Emergency (ER) | payer OTHER, SELFPAY ==
[2018-11-29 07:06] VITALS: BP 111/72; PULSE 88; RESP 14; TEMP 36.3; O2SAT 99; BMI 24.1
--- NOTE | 2018-11-29 07:16 | RAD_ITS ---
STUDY: X-RAY CHEST REASON FOR EXAM: Female, 23 years old. Chest pain. TECHNIQUE: Single AP portable view of the chest. COMPARISON: CT of the chest dated July 03, 2017. FINDINGS: Cardiac monitoring leads are present. The lungs are clear and expanded. There is no demonstrated pleural abnormality. Normal size heart. Normal mediastinum and liz. Normal visualized pulmonary arteries. Normal visualized aortic arch and descending thoracic aorta. Normal visualized thoracic spine. Normal visualized ribs, clavicles, and shoulders. There is no demonstrated abnormality of the visualized soft tissue structures of the upper abdomen. RAD/Chest 1 View (Portable) IMPRESSION: No radiographic evidence of acute cardiopulmonary disease. Electronically Signed: Eda Coronado MD at 7:50 EDT , Service support ,
--- NOTE | 2018-11-29 07:17 | EKG12_ITS ---
Test Reason : PAIN Blood Pressure : / mmHG Vent. Rate : 085 BPM Atrial Rate : 091 BPM P-R Int : 150 ms QRS Dur : 092 ms QT Int : 384 ms P-R-T Axes : 060 079 055 degrees QTc Int : 456 ms Sinus rhythm with marked sinus arrhythmia Otherwise normal ECG Confirmed by SIRI GONCALVES, KEELEY ([id number]), news assignment editor SIDDHARTHA WHITNEY ([id number]) on 12/03/2018 10:27:20 AM Referred By: Confirmed By:KEELEY HORNER MD
--- NOTE | 2018-11-29 07:18 | ED.VIS.GEN ---
History of Present Illness Chief Complaint: Abd Pain Detail of Chief Complaint: Abdominal pain, nausea, vomiting, diarrhea, chest palpitation Informant: Patient Onset: Today Context: Gradual Onset Timing: Waxes and wanes Quality: Stabbing Location: Below the umbilicus Current Severity: Mild Maximum Severity: Moderate Narrative: Patient reports waking from sleep between midnight and 2 AM with stabbing abdominal pain. This was followed by nausea, vomiting, and then diarrhea. She is intermittently had some chest heaviness with palpitations as well. She denies fever or chills. She states she felt well when she went to bed last evening. She did eat dinner with her brother recently who had food poisoning prior to their dinner together. No one else eating dinner with him has been ill. Past history is significant for 2 prior C-sections. She states she had both of her babies early due to heart problems. She is unable to further describe these heart problems other than she would have irregular beats. She is not on any chronic medication for palpitations. Past Medical History - Allergies and Home Meds Allergies/Adverse Reactions: Allergies amoxicillin Allergy (Verified 11/29/18 07:06) Hives Iodinated Contrast- Oral and IV Dye [Iodinated Contrast Media - IV Dye] Allergy (Verified 11/29/18 07:06) Hives pamabrom [From Midol] Allergy (Verified 11/29/18 07:06) Other blown pupil and hives meperidine [From Demerol] Adverse Reaction (Severe, Verified 11/29/18 07:06) extreme itching Primary Care Physician: Dustin Martinez MD [STAFF PHYSICIAN] - As Needed Prior records reviewed: Yes Past Medical History: - - Reviewed Surgical History: - - x2 Lives: With Family Smoking Status: Never smoker Review of Systems General: Denies: Chills, Fever Eyes: Denies: Visual changes - bilaterally ENT: Denies: Bilateral ear pain Cardiovascular: Reports: Chest pain, Palpitations Respiratory: Denies: Dyspnea, Cough Gastrointestinal: Reports: Abdominal pain, Nausea, Vomiting, Diarrhea Genitourinary: Denies: Dysuria Musculoskeletal: Denies: Myalgias, Neck pain, Back pain Skin: Denies: Rash Neurological: Denies: Headache Endocrine: Denies: Polyuria, Polydipsia Hematologic: Denies: Easy bruising Allergy: Denies: Uticaria Physical Exam Vital Signs/Narrative: Vital Signs Temp Pulse Resp BP Pulse Ox 11/29/18 07:06 97.3 F L 88 14 111/72 99 Inital Vital Signs reviewed: Yes General: Well nourished, Well developed Head: Normocephalic Eyes: Perrl, EOMI ENT: Moist mucous membranes, No rhinorrhea Cardiovascular: Regular rate, Regular rhythm Respiratory: No distress, CTA bilaterally Abdomen: Soft, Tender - Mild suprapubic tenderness., Hypoactive bowel sounds. Negative for: Guarding, Rebound tenderness Back: Nontender Extremities: Nontender, No edema Skin: Normal color, No rash Neurological: Alert, Oriented x3 Psychological: Normal affect Diagnostic/Tx/Re-eval Impressions Chest X-Ray 11/29/18 07:16 IMPRESSION: No radiographic evidence of acute cardiopulmonary disease. Electronically Signed: Eda Coronado MD at 7:50 EDT , Service support , 11/29/18 07:16 Chest 1 View (Portable) [RAD] Stat Laboratory Results 11/29/18 11/29/18 11/29/18 07:30 07:30 07:30 WBC 8.6 RBC 4.94 Hgb 14.9 Hct 43.8 MCV 88.7 MCH 30.2 MCHC 34.0 RDW Std Deviation 36.2 RDW Coeff of Zenon 11.3 L Plt Count 229 MPV 9.3 Immature Gran % (Auto) 0.500 Neut % (Auto) 73.8 H Lymph % (Auto) 16.6 L [place] % (Auto) 8.3 Eos % (Auto) 0.7 Baso % (Auto) 0.1 Absolute Neuts (auto) 6.4 Absolute Lymphs (auto) 1.43 Nucleated RBC % 0 Sodium 141 Potassium 3.6 Chloride 109 H Carbon Dioxide 25.0 Anion Gap 7 BUN 14 Creatinine 0.67 Estim Creat Clear Calc 110.84 Est GFR (MDRD) Af Amer 137 Est GFR (MDRD) Non-Af 113 BUN/Creatinine Ratio 20.9 H Glucose 86 Calcium 9.0 Troponin I < 0.015 Serum , Qual NEGATIVE Urine Color Urine Clarity Urine pH Ur Specific [place] Urine Protein Urine Glucose (UA) Urine Ketones Urine Occult Blood Urine Nitrite Urine Bilirubin Urine Urobilinogen Ur Leukocyte Esterase Urine RBC Urine WBC Ur Squamous Epith Cells Urine Bacteria Urine Mucus 11/29/18 07:40 WBC RBC Hgb Hct MCV MCH MCHC RDW Std Deviation RDW Coeff of Zenon Plt Count MPV Immature Gran % (Auto) Neut % (Auto) Lymph % (Auto) [place] % (Auto) Eos % (Auto) Baso % (Auto) Absolute Neuts (auto) Absolute Lymphs (auto) Nucleated RBC % Sodium Potassium Chloride Carbon Dioxide Anion Gap BUN Creatinine Estim Creat Clear Calc Est GFR (MDRD) Af Amer Est GFR (MDRD) Non-Af BUN/Creatinine Ratio Glucose Calcium Troponin I Serum , Qual Urine Color Yellow Urine Clarity Clear Urine pH 7.0 Ur Specific [place] 1.010 Urine Protein Negative Urine Glucose (UA) Normal Urine Ketones Negative Urine Occult Blood 10 H Urine Nitrite Negative Urine Bilirubin Negative Urine Urobilinogen Normal Ur Leukocyte Esterase Negative Urine RBC 0 SEEN Urine WBC 0 SEEN Ur Squamous Epith Cells 0-5 SEEN Urine Bacteria RARE Urine Mucus RARE - EKG Initial EKG Interpretation: Sinus Rhythm - Sinus at 85 with sinus arrhythmia. No acute ischemia. - Medical Decision Making Patient was given Toradol, Zofran, and IV fluids. Test results are unremarkable. These findings were discussed with the patient. On repeat evaluation she states her abdominal pain is improved. She will be given a prescription for Toradol and Zofran. She will be referred to local PCP to establish primary care. Prior to patient being discharged she asked the nurse about the medication for poison lilian. She has had a rash to the extremities for the past 1 month or so. She states it is slowly improving but is taking quite some time. She is not sure with poison lilian or poison sumac. On review she has approximately 6 scattered red erythematous lesions on the right arm. No sign of secondary cellulitis. She will be given a short burst of steroids for this. ED Disposition - Plan for ED Patient: Disposition: Home or Assisted Living Diagnosis: Gastroenteritis, Poison lilian dermatitis Instructions: GASTROENTERITIS, Viral (4y-Adult), Poison Lilian Dermatitis Prescriptions: Prednisone [Deltasone] 40 mg PO DAILY #10 tablet Ketorolac [Toradol] 10 mg PO Q6H PRN #14 tab PRN Reason: Pain Prescription Printed Ondansetron [Zofran Odt] 4 mg PO Q8H PRN PRN #10 tab PRN Reason: Nausea Prescription Printed Referrals: Dustin Martinez MD [STAFF PHYSICIAN] - As Needed
[2018-11-29] MEDS: 0.9% Normal Saline 1,000 ML 150 ML IV (07:31)
[2018-11-29] MEDS: Ondansetron 4 MG/2 ML Vial IV (07:31)
[2018-11-29] MEDS: Ketorolac 30 MG/ML Syringe IV (07:31)
[2018-11-29 07:45] LABS: Absolute Lymphocyte Count 1.43 X10^3/uL (0.83-4.51); Absolute Neutrophil Count 6.4 X10^3/uL (2.0-7.7); Basophil# 0.01 X10^3/uL; Basophil% 0.1 % (0-1); Eosinophil# 0.06 X10^3/uL; Eosinophils% 0.7 % (0-5); Hematocrit 43.8 % (37-47); Hemoglobin 14.9 g/dL (12.0-15.0); Lymphocyte # 1.43 X10^3/ul (4.0); Lymphocyte % 16.6 % (19-41); Mean Corpuscular Hgb 30.2 pg (27.0-32.0); Mean Corpuscular Volume 88.7 fL (81-99); Mean Platelet Vol. 9.3 fl (6.2-12.0); Monocyte# 0.71 X10^3/uL; Monocyte% 8.3 % (0-10); NRBC Flagged by Analyzer 0 % (0-5); Neutrophil # 6.35 X10^3/uL (2.7-7.7); Neutrophil % 73.8 % (47-70); Platelet Count 229 K/mm3 (150-450); RBC Distribution Width CV 11.3 % (11.6-14.6); RBC Distribution Width SD 36.2 fl (35.1-43.9); Red Blood Count 4.94 M/mm3 (4.2-5.4); White Blood Count 8.6 K/mm3 (4.4-11.0)
[2018-11-29 07:47] LABS: Red Blood Cells-Urine 0 SEEN /hpf (0-5); White Blood Cells 0 SEEN /hpf (0-5)
[2018-11-29 07:52] LABS: Color, Urine Yellow (Yellow); Glucose, Dipstick Normal (Normal); Ketone-Dipstick Negative (Negative); Leukocyte Esterase-Dipstick Negative /ul (Negative); Nitrite-Dipstick Negative (Negative); Occult Blood-Urine 10 /ul (Negative); Protein-Dipstick Negative (Negative); Urine Bilirubin Dipstick Negative (Negative); Urine Clarity Clear (Clear); Urine Urobilinogen Normal (Normal)
[2018-11-29 07:53] LABS: Internal QC Validated? YES +Cl - CLEAR BKGD; Pregnancy, Serum, hCG Quali. NEGATIVE Negative
[2018-11-29 08:01] LABS: Anion Gap 7 (5-15); BUN 14 mg/dL (7-18); BUN/Creat Ratio 20.9 RATIO (10-20); Chloride 109 mmol/L (98-107); Creatinine, Serum 0.67 mg/dL (0.55-1.02); EST Glomerular Filtration Rate 113 mL/min (>60); Est Glom Filt Rate - Afr Amer 137 mL/min (>60); Estimated Creatinine Clearance 110.84 ml/min; Glucose 86 mg/dL (74-106); Potassium 3.6 mmol/L (3.5-5.1); Sodium Level 141 mmol/L (136-145)
[2018-11-29 08:13] LABS: Bacteria RARE /hpf (None Seen); Mucous, Urine RARE /hpf (<or=2+); Squamous Epithelial Cells - UA 0-5 SEEN /hpf (5-10)
[2018-11-29 08:58] VITALS: BP 107/70; PULSE 72; RESP 15; O2SAT 99
== END 2018-11-29 08:59 | disposition home or self-care (01) ==
PROVIDERS: Emergency Provider Emergency Medicine
DX: K52.9 Noninfective gastroenteritis and colitis, unspecified (principal); L23.7 Allergic contact dermatitis due to plants, except food; R07.89 Other chest pain; R00.2 Palpitations
CPT/HCPCS: 71045; 80048; 81001; 84484; 84703; 85025; 93005; 96361; 96374; 96375; 99284; J7030; A4216; J2405

== ENCOUNTER 2019-05-28 04:04 | Emergency (ER) | payer OTHER, SELFPAY ==
[2019-05-28 04:05] VITALS: BP 119/83; PULSE 118; RESP 18; TEMP 37.2; O2SAT 98; BMI 24.9
--- NOTE | 2019-05-28 04:20 | ED.VIS.GI ---
History of Present Illness Chief Complaint: Nausea/Vomiting/Diarrhea Informant: Patient - Abdominal Pain/Flank Pain Onset: Hours - 4 Context: Gradual Onset Timing: Continuous Quality: Aching Location: Diffuse Current Severity: Mild Maximum Severity: Mild Worsened by: Food Relieved by: Nothing - Nausea/Vomiting/Emesis GI Symptom: Nausea, Vomiting Onset: Hours - 4 Severity: Severe - Diarrhea/Melena/Hematochezia GI Symptom: Diarrhea, Hematochezia - streaks. Negative for: Melena Stool Quality: Watery. Negative for: Black Severity: Moderate Associated Symptoms: Negative for: Dysuria, Frequency, Hematuria, Urgency Narrative: Patient started having diarrhea before going to bed and for the last 4 hours is been vomiting and cannot keep anything down. States that she knows she has not been vomiting for very long but feels very sick and wants to feel better. 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 She states that is gone. They did some tests and she had a white blood count was a little elevated but otherwise they said everything was okay. She states she has a history of anxiety and sometimes does get chest discomfort with her anxiety. She does not have that now. Had prior C-sections but no other abdominal surgeries. States that her daughter was having diarrhea and vomiting for a couple of days this past week, she is better now. Patient denies any fevers that she knows of. - Past Medical History (1) Anxiety Status: Chronic (2) Hyperemesis affecting , antepartum Status: Suspected Comment: phenergan (3) Rh negative state in antepartum period Status: Chronic Comment: patient had a negative reaction to previous rhogam, declining all rhogam shots this , planning tubal ligation. counseled patient regarding risk of anemia in a subsequent . Past Medical History - Allergies and Home Meds Allergies/Adverse Reactions: Allergies amoxicillin Allergy (Verified 05/28/19 04:05) Hives Iodinated Contrast Media [Iodinated Contrast Media - IV Dye] Allergy (Verified 05/28/19 04:05) Hives pamabrom [From Midol] Allergy (Verified 05/28/19 04:05) Other blown pupil and hives meperidine [From Demerol] Adverse Reaction (Severe, Verified 05/28/19 04:05) extreme itching metoclopramide [From Reglan] Adverse Reaction (Verified 05/28/19 04:05) Other Primary Care Physician: Care Physician,No Primary [NON-STAFF] - Surgical History: - - x2 Smoking Status: Former smoker Drugs: None Review of Systems General: Denies: Chills, Fever, Sweats Eyes: Denies: Visual changes - bilaterally, Diplopia ENT: Denies: Rhinorrhea, Sore throat Cardiovascular: Denies: Chest pain, Palpitations Respiratory: Denies: Dyspnea, Cough, Dyspnea on exertion Gastrointestinal: Reports: Abdominal pain, Nausea, Vomiting, Diarrhea, Hematochezia. Denies: Melena Genitourinary: Denies: Dysuria, Hematuria, Frequency Musculoskeletal: Denies: Back pain, Swelling, Extremity Pain Skin: Denies: Rash, Wounds Neurological: Denies: Headache, Weakness, Numbness Physical Exam Vital Signs/Narrative: Vital Signs Temp Pulse Resp BP Pulse Ox 05/28/19 04:05 98.9 F 118 H 18 119/83 H 98 Inital Vital Signs reviewed: Yes General: Well nourished, Well developed, No Acute Distress Head: Normocephalic, Atraumatic Eyes: Perrl, EOMI ENT: Moist mucous membranes, No rhinorrhea Neck: Supple, Nontender Cardiovascular: Regular rate, Regular rhythm, No murmurs, Tachycardia - Mild Respiratory: No distress, CTA bilaterally, Chest nontender Abdomen: Soft, Nontender, Nondistended, Normal bowel sounds Back: Nontender, Normal Inspection Extremities: Nontender, No edema Skin: Normal color, No rash, No Trauma Neurological: Alert, Oriented x3, Cranial nerves II-XII grossly intact, Normal Strength, Normal Sensation, Normal Gait Psychological: Normal affect, Normal Mood Diagnostic/Tx/Re-eval Laboratory Tests 05/28/19 05/28/19 Range/Units 05:00 05:00 Urine Color Yellow (Yellow) Urine Clarity Clear (Clear) Urine pH 6.0 (5.0 - 8.0) Ur Specific [place] 1.020 (1.002-1.030) Urine Protein 15 H (Negative) mg/dl Urine Glucose (UA) Normal (Normal) mg/dl Urine Ketones 5 H (Negative) mg/dl Urine Occult Blood 150 H (Negative) /ul Urine Nitrite Negative (Negative) Urine Bilirubin Negative (Negative) mg/dL Urine Urobilinogen Normal (Normal) mg/dl Ur Leukocyte Esterase Negative (Negative) /ul Urine RBC 0-5 SEEN (0-5) /hpf Urine WBC 0-5 SEEN (0-5) /hpf Ur Squamous Epith Cells 0-5 SEEN (5-10) /hpf Urine Bacteria 0 SEEN (None Seen) /hpf Urine Mucus 0 SEEN (<or=2+) /hpf Urine Test Negative Negative - Medical Decision Making is negative and urinalysis is also unremarkable. After IV fluids, Zofran, a GI cocktail, all of patient's symptoms are much improved. She is tolerating oral fluids and stable for discharge home. Her heart rate is down to discharge. Most likely etiology here is viral gastroenteritis with intestinal cramping, as her daughter just recently had similar illness. Advised to stay hydrated and was prescribed Zofran. ED Disposition - Plan for ED Patient: Disposition: Home or Assisted Living Diagnosis: Nausea, vomiting, and diarrhea Instructions: VOMITING AND DIARRHEA, Nonspecific (Adult) Prescriptions: Ondansetron [Zofran Odt] 4 - 8 mg PO Q8H PRN PRN #12 tab PRN Reason: Nausea Transmission Status: Pending to [facility] Referrals: Juan David Rosales MD [STAFF PHYSICIAN] - 3-5 Days if not improving
[2019-05-28] MEDS: 0.9% Normal Saline 1,000 ML 999 ML IV (04:26)
[2019-05-28] MEDS: Mag Hydrox/Al Hydrox/Simeth 30 ML UDC PO (04:27)
[2019-05-28] MEDS: Ondansetron 4 MG/2 ML Vial IV (04:27)
[2019-05-28 05:06] LABS: Bacteria 0 SEEN /hpf (None Seen); Mucous, Urine 0 SEEN /hpf (<or=2+)
[2019-05-28 05:07] LABS: Color, Urine Yellow (Yellow); Glucose, Dipstick Normal (Normal); Ketone-Dipstick 5 mg/dl (Negative); Leukocyte Esterase-Dipstick Negative /ul (Negative); Nitrite-Dipstick Negative (Negative); Occult Blood-Urine 150 /ul (Negative); Protein-Dipstick 15 mg/dl (Negative); Urine Bilirubin Dipstick Negative (Negative); Urine Clarity Clear (Clear); Urine Urobilinogen Normal (Normal)
[2019-05-28 05:09] LABS: Internal QC Validated? YES +Cl - CLEAR BKGD; Pregnancy, Urine Negative Negative
[2019-05-28 05:15] LABS: Red Blood Cells-Urine 0-5 SEEN /hpf (0-5); Squamous Epithelial Cells - UA 0-5 SEEN /hpf (5-10); White Blood Cells 0-5 SEEN /hpf (0-5)
[2019-05-28 05:32] VITALS: BP 115/82; PULSE 100; RESP 16; O2SAT 99
== END 2019-05-28 05:46 | disposition home or self-care (01) ==
PROVIDERS: Emergency Provider Emergency Medicine; PCP Family Medicine
DX: R11.2 Nausea with vomiting, unspecified (principal); R19.7 Diarrhea, unspecified; Z87.891 Personal history of nicotine dependence
CPT/HCPCS: 81001; 81025; 96361; 96374; 99284; J7030; A4216; J2405

== ENCOUNTER 2019-11-13 21:40 | Emergency (ER) | payer SELFPAY ==
[2019-11-13 21:41] VITALS: BP 152/85; PULSE 79; RESP 16; TEMP 36.2; O2SAT 99; BMI 24.9
--- NOTE | 2019-11-13 22:38 | ED.RN ---
xray in to see patient. patient refusing chest xray at this time. Dr. Atwood made aware
--- NOTE | 2019-11-13 22:43 | ED.VISSUMM ---
- ER Visit Summary Date of Service: 11/13/19 Chief Complaint: Sore throat History of Present Illness: The patient is a 24 F who presents with a sore throat, shortness of breath, and upper respiratory congestion that has been getting worse over the past 3 days. 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 Patient states her symptoms started a couple days after this. Patient states she has been congested in her chest and nose. Patient states she also lost her sense of taste and smell. Patient admits to general myalgias. Patient admits to a cough but denies any sputum production. Patient admits to some pain in her chest as well as some shortness of breath. Patient denies any fevers but admits to subjective chills. Physical Examination: Vital signs are stable. Patient is afebrile. Patient is in no acute distress. Oral mucosa is pink and moist. Oropharynx is slightly erythematous. There are no exudates noted. Neck is supple. Trachea is midline. There is no JVD noted. Heart was regular rate and rhythm. Lungs are clear and equal bilaterally. Abdomen is soft. Bowel sounds are normal. There is no tenderness. There is no rebound or guarding noted. Skin is warm dry. Cranial nerves II through XII are intact. There are no focal motor or sensory deficits noted. Extremities are intact. There is no calf tenderness or edema. Test Results: COVID swab was obtained and is pending. This is a send out test. Portable chest x-ray was ordered but the patient refused. Emergency Department Course and Treatment: Patient was given COVID instructions. Patient was instructed to quarantine herself until her COVID results are returned in 3 to 5 days. Patient was instructed to wear her mask. Patient was instructed on frequent handwashing. Patient was instructed to follow-up with her primary care physician in 5 to 7 days. Patient understood and was agreeable with the plan. All questions were answered. Disposition: Discharge home Impression: Viral upper respiratory infection This note was generated with [employer] software. It may contain incorrect words, spelling, and punctuation that were not noted in review of the chart prior to signing ED Disposition - Plan for ED Patient: Disposition: Home or Assisted Living Diagnosis: Viral upper respiratory infection Instructions: ED URI Viral Referrals: Adrián Ross MD [Primary Care Provider] - 5-7 Days
== END 2019-11-13 23:20 | disposition home or self-care (01) ==
LOC: ED 23:02
PROVIDERS: Emergency Provider Emergency Medicine; PCP Family Medicine
DX: J06.9 Acute upper respiratory infection, unspecified (principal)
CPT/HCPCS: 87635; 99283; G2023; U0003

== ENCOUNTER → 2020-12-14 | Outpatient (CLI) | payer OTHER, SELFPAY | END | disposition home or self-care (01) | LOC: LABSPEC 13:12 | PROVIDERS: PCP Family Medicine; Referring Provider Obstetrics & Gynecology; Visit Provider Obstetrics & Gynecology | DX: N64.52 Nipple discharge (principal) | CPT/HCPCS: 87070; 87077; 87186; 87205 ==

== ENCOUNTER → 2020-12-16 09:36 | Outpatient (CLI) | payer OTHER, SELFPAY ==
--- NOTE | 2020-12-16 09:38 | BI_ITS ---
MAMMOGRAPHY - BILATERAL DIAGNOSTIC REASON FOR EXAM: Female, 25 years old. One-week history of a right breast lump with breast discharge. PERTINENT HISTORY: Aunt with breast cancer. TECHNIQUE: Digital bilateral breast mariah (3D mammographic acquisition) in the CC and MLO projections. 2-D mediolateral oblique (MLO) and craniocaudad (CC) views of both breasts were obtained. CAD: Full Field Digital Mammography with Computer Added Detection was performed. COMPARISON: None. Baseline examination. FINDINGS: Breast Composition: The breasts are extremely dense, which lowers the sensitivity of mammography. There are no dominant masses or suspicious calcifications. No other significant abnormalities are identified. BI/DIAG MAMM W/CAD, BILAT IMPRESSION: Negative diagnostic mammogram. With the patient''s history of a right breast lump, targeted ultrasound of the right breast is recommended for further evaluation. ASSESSMENT CATEGORY: BIRADS Category 0: Incomplete. Need additional imaging evaluation. A letter regarding these results will be sent to the patient by the facility within 30 days. Approximately 10% of breast cancers are not detected by mammography. A normal mammogram should not delay biopsy of a clinically suspicious abnormality. Electronically Signed: Bossman Cardenas MD at 10:46 EDT , Service support ,
--- NOTE | 2020-12-16 09:38 | US_ITS ---
STUDY: ULTRASOUND BREAST - RIGHT REASON FOR EXAM: Female, 25 years old. Palpable lump in the right breast. TECHNIQUE: Axial and longitudinal images of the RIGHT breast were performed with a high resolution ultrasound transducer. # OF IMAGES: 36 COMPARISON: Comparison is made with prior mammogram done earlier today. FINDINGS: RIGHT Breast: The right upper quadrant as well as the retroareolar region of the right breast were examined by ultrasound. No sonographic abnormality is seen. US/Breast Limited Unilateral IMPRESSION: No sonographic abnormality is seen. ASSESSMENT CATEGORY: BIRADS Category 1: Negative. A letter regarding these results will be sent to the patient by the facility within 30 days. Electronically Signed: Bossman Cardenas MD at 11:07 EDT , Service support ,
[2020-12-16 11:55] LABS: NATERA MAILED SPECIMEN
== END ==
PROVIDERS: Referring Provider Obstetrics & Gynecology; Visit Provider Obstetrics & Gynecology
DX: N63.10 Unspecified lump in the right breast, unspecified quadrant (principal); N63.20 Unspecified lump in the left breast, unspecified quadrant; N64.52 Nipple discharge
CPT/HCPCS: 36415; 76642; 77062; 77066; G0279

== ENCOUNTER 2021-06-03 15:53 | Emergency (ER) | payer OTHER, SELFPAY ==
[2021-06-03 15:55] VITALS: BP 106/84; PULSE 94; RESP 18; TEMP 36.3; O2SAT 97; BMI 25.7
--- NOTE | 2021-06-03 16:08 | EX.ED.DYSGE1 ---
HPI History of Present Illness Chief Complaint: General Illness Informant: patient Onset/Context/Timing Onset: Days (3) Context: Sudden Onset Timing: Continuous Quality: Dull, aching Location: Low back Worsened by: Walking Relieved by: Nothing Narrative Narrative: Patient presents with body aches that has been getting worse over the past 3 days. Patient states it began rather suddenly when she woke up 3 days ago. Patient describes her pain as dull and aching. Patient states it is worse in her lower back. Patient states it is worse whenever she tries to walk. Patient states it has been constant for the past 3 days. Patient admits to subjective chills but denies any fevers. Patient admits to nausea and decreased appetite. [facility] Medical History Bilateral breast lump Family history of cleft lip and palate Family history of congenital heart defect Genetic testing of female Preeclampsia Home Medications ondansetron 4 mg disintegrating tablet 4 mg PO Q4H PRN #60 tab 03/14/21 [Rx Last Taken Unknown] Allergy/AdvReac Type Severity Reaction Status Date / Time amoxicillin Allergy Hives Verified 12/14/20 10:51 Iodinated Contrast Media Allergy Hives Verified 12/14/20 10:51 [Iodinated Contrast Media - IV Dye] pamabrom [From Midol] Allergy Other Verified 12/14/20 10:51 meperidine [From Demerol] AdvReac Severe extreme Verified 12/14/20 10:51 itching metoclopramide [From Reglan] AdvReac Other Verified 12/14/20 10:51 Family History Mother Lupus Heart disease Father Heart disease Aunt Breast cancer, Onset Age: 32 maternal Aunt Breast cancer, Onset Age: 40 maternal Aunt Breast cancer, Onset Age: 50 maternal Surgical History delivery delivered Social History Smoking Status: Never smoker alcohol intake: never substance use type: does not use caffeine: No what type of physical activity do you participate in: none seatbelt use: always do you feel safe at home: Yes additional social history: Samuel Amy Faithmary. [facility] ED Constitutional Constitutional ED: Reports chills and subjective; Denies fever(s) Eyes Eyes: Denies blurry vision or change in vision ENT ENT ED: Reports rhinorrhea and sore throat Cardiovascular Cardiovascular: Reports palpitations; Denies chest pain Respiratory/Chest Respiratory/Chest: Denies cough or dyspnea Gastrointestinal Gastrointestinal: Reports nausea; Denies vomiting Genitourinary Genitourinary ED: Denies dysuria or hematuria Musculoskeletal Musculoskeletal: Reports back pain and myalgias; Denies neck pain Integumentary Reports rash; Denies abscess Neurologic Neurologic: Denies headache(s) or weakness Allergic/Immunologic Allergic/Immunologic ED: Denies mouth swelling or urticaria EXAM Physical Exam Const Vital Signs: 06/03/21 15:55 Temperature 97.4 F L Temperature Source Temporal Pulse Rate 94 Respiratory Rate 18 Blood Pressure 106/84 H Blood Pressure Mean 91 Pulse Ox 97 Oxygen Delivery Method Room Air Positive well nourished and well developed General Appearance ED: well developed HEENT Reports moist mucous membranes Neck supple and no JVD Resp normal respiratory effort and clear to auscultation bilaterally Cardio regular rate, regular rhythm and no murmurs GI normal to inspection, nondistended, normoactive bowel sounds Palpation: soft and tender other (There is mild diffuse tenderness); Negative for guarding or rebound tenderness present Back/Spine no CVA tenderness Back/Spine Narrative: There is mild tenderness of the lumbar paraspinal muscles. There is no CVA tenderness. There is no edema or ecchymosis. There is no midline tenderness. Lumbar Spine / Lower Back: Negative for lumbar spinal tenderness Extremity normal to inspection General Extremety ED: Negative for edema or tenderness General Extremity: Negative for edema Neuro oriented x3, CN's II-XII intact bilaterally and no sensory deficits noted Sensorium / Orientation: alert Motor Exam: strength 5/5 throughout Psych mental status grossly normal Skin no rashes or lesions noted MDM MDM MDM Narrative Medical decision making narrative: Patient was given IV fluids and Tylenol here. COVID-19 rapid antigen was obtained was negative. CBC was within normal limits. Comprehensive metabolic profile was within normal limits. Urinalysis does not show any evidence of urinary tract infection. Patient is feeling better on reevaluation. Patient was advised of her results. Patient was advised that this is most likely a viral illness. Patient was instructed to drink plenty of fluids. Patient was instructed to follow-up with her primary care physician in 5 to 7 days. Patient understood and was agreeable with the plan. All questions were answered. Lab Data Attestation: I reviewed the patient's lab results. Labs: Laboratory Results - last 24 hr 06/03/21 06/03/21 06/03/21 16:10 16:10 16:47 WBC 5.3 RBC 4.68 Hgb 14.6 Hct 42.0 MCV 89.7 MCH 31.2 MCHC 34.8 RDW Std Deviation 38.5 RDW Coeff of Zenon 11.8 Plt Count 189 MPV 9.4 Immature Gran % (Auto) 0.200 Neut % (Auto) 69.0 Lymph % (Auto) 14.0 L [place] % (Auto) 14.9 H Eos % (Auto) 1.5 Baso % (Auto) 0.4 Absolute Neuts (auto) 3.7 Absolute Lymphs (auto) 0.74 L Nucleated RBC % 0 Sodium 138 Potassium 3.7 Chloride 107 Carbon Dioxide 26.0 Anion Gap 5 BUN 8 Creatinine 0.77 Estim Creat Clear Calc 93.93 Est GFR (MDRD) Af Amer 114 Est GFR (MDRD) Non-Af 94 BUN/Creatinine Ratio 10.3 Glucose 95 Calcium 8.5 Total Bilirubin 0.50 AST 27 ALT 33 Alkaline Phosphatase 53 Total Protein 7.0 Albumin 3.5 Globulin 3.5 Albumin/Globulin Ratio 1.0 Urine Color [place] Urine Clarity Sl. Cloudy Urine pH 5.0 Ur Specific [place] 1.020 Urine Protein 15 H Urine Glucose (UA) Normal Urine Ketones 5 H Urine Occult Blood 10 H Urine Nitrite Negative Urine Bilirubin Negative Urine Urobilinogen 4 H Ur Leukocyte Esterase Negative Urine RBC 0-5 SEEN Urine WBC 0-5 SEEN Ur Squamous Epith Cells 0-5 SEEN Urine Bacteria 1+ Urine Mucus 1+ Discharge Plan Triage Chief Complaint: General Illness ED Provider: Dustin Atwood Dx/Rx/DC Orders Clinical Impression: Viral illness Instructions: ED Viral Syndrome (Adult) Prescriptions: No Action ondansetron 4 mg tablet,disintegrating 4 mg PO Q4H PRN (Reason: nausea and vomiting) Qty: 60 RF: 0 Primary Care Provider: Care Physician,No Primary Referrals: Fast,Ewelina, DO [NON-STAFF] - 5-7 Days Care Physician,No Primary [Primary Care Provider] - Disposition Disposition: Home, Self Care
[2021-06-03 16:36] LABS: Absolute Lymphocyte Count 0.74 X10^3/uL (0.83-4.51); Absolute Neutrophil Count 3.7 X10^3/uL (2.0-7.7); Basophil# 0.02 X10^3/uL; Basophil% 0.4 % (0-1); Eosinophil# 0.08 X10^3/uL; Eosinophils% 1.5 % (0-5); Hemoglobin 14.6 g/dL (12.0-15.0); Lymphocyte # 0.74 X10^3/ul (0.83-4.51); Mean Corp Hgb Conc 34.8 g/dL (32-36); Mean Corpuscular Hgb 31.2 pg (27.0-32.0); Mean Corpuscular Volume 89.7 fL (81-99); Mean Platelet Vol. 9.4 fl (6.2-12.0); Monocyte# 0.79 X10^3/uL; Monocyte% 14.9 % (0-10); NRBC Flagged by Analyzer 0 % (0-5); Neutrophil # 3.66 X10^3/uL (2.7-7.7); Platelet Count 189 K/mm3 (150-450); RBC Distribution Width CV 11.8 % (11.6-14.6); RBC Distribution Width SD 38.5 fl (35.1-43.9); Red Blood Count 4.68 M/mm3 (4.2-5.4); White Blood Count 5.3 K/mm3 (4.4-11.0)
[2021-06-03] MEDS: Acetaminophen 500 MG Tablet 1000 MG PO (16:44)
[2021-06-03 16:53] LABS: AST(SGOT) 27 U/L (15-37); Alanine Aminotransfer ALT/SGPT 33 U/L (13-56); Albumin, Serum 3.5 g/dL (3.2-5.0); Alkaline Phosphatase 53 U/L (45-117); Anion Gap 5 (5-15); BUN 8 mg/dL (7-18); BUN/Creat Ratio 10.3 RATIO (10-20); Calcium,Total 8.5 mg/dL (8.5-10.1); Chloride 107 mmol/L (98-107); Creatinine, Serum 0.77 mg/dL (0.55-1.02); EST Glomerular Filtration Rate 94 mL/min (>60); Est Glom Filt Rate - Afr Amer 114 mL/min (>60); Estimated Creatinine Clearance 93.93 ml/min; Globulin 3.5 g/dL (2.2-4.2); Glucose 95 mg/dL (74-106); Potassium 3.7 mmol/L (3.5-5.1); Sodium Level 138 mmol/L (136-145)
[2021-06-03 17:00] LABS: Color, Urine Amber (Yellow); Glucose, Dipstick Normal (Normal); Ketone-Dipstick 5 mg/dl (Negative); Leukocyte Esterase-Dipstick Negative /ul (Negative); Nitrite-Dipstick Negative (Negative); Occult Blood-Urine 10 /ul (Negative); Protein-Dipstick 15 mg/dl (Negative); Urine Bilirubin Dipstick Negative (Negative); Urine Clarity Sl. Cloudy (Clear); Urine Urobilinogen 4 mg/dl (Normal)
[2021-06-03 17:10] LABS: Bacteria 1+ /hpf (None Seen); Mucous, Urine 1+ /hpf (<or=2+); Red Blood Cells-Urine 0-5 SEEN /hpf (0-5); Squamous Epithelial Cells - UA 0-5 SEEN /hpf (5-10); White Blood Cells 0-5 SEEN /hpf (0-5)
== END 2021-06-03 18:12 | disposition home or self-care (01) ==
PROVIDERS: Emergency Provider Emergency Medicine; Visit Provider Emergency Medicine
DX: B34.9 Viral infection, unspecified (principal)
CPT/HCPCS: 80053; 81001; 85025; 87426; 96360; 99283; J7040; A4216

== ENCOUNTER → 2021-12-13 | Outpatient (CLI) | payer BC, SELFPAY ==
--- NOTE | 2021-12-13 | WART_PTH ---
PATIENT: DAVID TAMAYO LOC: [facility] U#:[id number] AGE/SX: 26/F ROOM: RE12/13/[address]: Dr. Jacqueline Torres DO : 1995 BED: DIS: 12/13/2021 SPEC #: [id number] RECD: 12/13/21 12:27 STATUS: MAXIMO BARBY #: [id number] EMILIA: 12/13/21 00:[address]: Jacqueline Torres DEPT: SURGICAL PATHOLOGY RECD BY: Jason Barth ENTERED: 12/14/21 08:49 SP TYPE: Trevor ADAIR DR: No Primary Care Phys Tissues: Epidermis Procedures: Surgery Specimen Level IV HEADER OPERATION: Excision of skin PRE-OP DIAGNOSIS: Vaginal lesion TISSUE SUBMITTED: Right labial wart MICROSCOPIC DIAGNOSIS Right labial wart, excisional biopsy: Consistent with condyloma. SJ 12/15/2021 MICROSCOPIC DESCRIPTION Slides are reviewed. GROSS DESCRIPTION Received in fixative is one container labeled with the patient's name and not further designated. The specimen consists of a fragment of mark, white skin measuring 0.5 x 0.2 x 0.1. The specimen is totally submitted in one cassette. BARRON:clementina 12/14/21 TC:1 CPT:07030
[2021-12-20 17:56] LABS: HPV Reflexed? NOT INDICATED
== END | disposition home or self-care (01) ==
PROVIDERS: Visit Provider Obstetrics & Gynecology
DX: Z12.4 Encounter for screening for malignant neoplasm of cervix (principal); N89.8 Other specified noninflammatory disorders of vagina
CPT/HCPCS: 88175; 88305; G0145

== ENCOUNTER → 2023-01-09 | Outpatient (CLI) | payer BC, SELFPAY | END | disposition home or self-care (01) | LOC: LABSPEC 15:08 | PROVIDERS: Referring Provider Nurse Practitioner Women's Health; Visit Provider Nurse Practitioner Women's Health | DX: N89.8 Other specified noninflammatory disorders of vagina (principal) | CPT/HCPCS: 87070; 87205 ==

== ENCOUNTER → 2024-03-03 | Outpatient (CLI) | payer BC, SELFPAY ==
[2024-03-11 13:08] LABS: HPV APTIMA, High Risk Negative (Negative)
== END | disposition home or self-care (01) ==
LOC: LABSPEC 15:54
PROVIDERS: Referring Provider Nurse Practitioner Women's Health; Visit Provider Nurse Practitioner Women's Health
DX: Z12.4 Encounter for screening for malignant neoplasm of cervix (principal)
CPT/HCPCS: 87624; 88175; G0145